=== PATIENT | female | born 1970 | race Caucasian/White ===

== ENCOUNTER → 2016-08-05 | Outpatient (CLI) | payer OTHER ==
[~2016-08-05] MED LIST: ATVUNK PO; ESTR0.3T PO; FLUO20CA35 PO; PRLSR20 PO; blood pressure med PO
== END | disposition home or self-care (01) ==
LOC: C.PAPS 08:20
PROVIDERS: ATTEND Obstetrics & Gynecology
DX: Z12.4 Encounter for screening for malignant neoplasm of cervix (principal)

== ENCOUNTER → 2016-08-05 | Outpatient (CLI) | payer OTHER | END | disposition home or self-care (01) | LOC: C.LAB1850 14:34 | PROVIDERS: ATTEND Obstetrics & Gynecology | DX: Z11.3 Encounter for screening for infections with a predominantly sexual mode of transmission (principal) ==

== ENCOUNTER → 2016-08-05 | Outpatient (CLI) | payer OTHER ==
--- NOTE | 2016-08-05 15:46 | MAMMOGRAPHY REPORT ---
UNILATERAL RIGHT DIGITAL DIAGNOSTIC MAMMOGRAM TOMOSYNTHESIS WITH CAD AND TARGETED RIGHT ULTRASOUND: 08/05/2016 CLINICAL HISTORY: 46-year-old woman presents for follow-up in the right breast. She is status post benign ultrasound-guided core needle biopsy 2. The biopsied masses in the 4:00 and 6:30 breast yie lded benign pathology, but did not definitely correlate with the original mammographic masses seen o n the 11/14/2015 exam. TECHNIQUE: Right breast tomosynthesis in addition to standard 2D mammography was performed. Current study was also evaluated with a Computer Aided Detection (CAD) system. COMPARISON: Comparison is made to exams dated: 11/14/2015 mammogram, 12/11/2015 ultrasound, 3 mammogram - [facility], and 07/17/2008. BREAST COMPOSITION: The tissue of the right breast is heterogeneously dense, which may obscure smal l masses. FINDINGS: There are stable wing-shaped and ribbon-shaped metallic biopsy markers within the lower i nner quadrant of the right breast. On the cc view, tomosynthesis slice 10, there is a 5.7 mm lobula kelly and circumscribed low density mass that is similar to slightly smaller than the mass identified on the 11/14/2015 exam. The slightly medial and anterior second mass smaller than the first is no l onger identified, confirming benignity. This most likely represented a fluctuating cyst. No new martines spicious mass, architectural distortion or cluster of new suspicious microcalcifications is seen. Real-time high-resolution ultrasound was performed in the right breast with attention to the lower i nner quadrant. In the 6:00 axis, a hypoechoic 3 mm cystic appearing mass is again identified, not s ignificantly changed comparing to the 12/11/2015 ultrasound, but this was previously labeled 6:30. A small cyst cluster is seen in the 6:00 right breast, 1 cm from the nipple, measuring 4.5 x 4.0 x 4 .4 mm. Another adjacent small cysts cluster measures 4.5 mm and an ovoid parallel anechoic cyst in the 6:00 axis, 1 cm from the nipple, measures 4.0 mm. No suspicious solid mass is seen. IMPRESSION: ACR-BI-RADS CATEGORY 3: PROBABLY BENIGN, TARGETED ULTRASOUND ACR-BI-RADS CATEGORY 3: OK OBABLY BENIGN There are stable post biopsy changes in the right breast with stable and decreased circumscribed mas ses anterior to the biopsy marker clips which most likely represent fluctuating cysts and/or fibrocy stic changes. However, another short interval follow-up right mammogram including tomosynthesis brandin ges and possible repeat ultrasound is recommended to ensure longer stability. Annual left mammograp hy will also be due at that time. These results and recommendations were discussed with the patient at the time of the exam. Approximately 10% of breast cancers are not detected with mammography. A negative mammographic repor t should not delay biopsy if a clinically suggestive mass is present. Nelly Silva M.D. ay/:08/05/2016 14:35:46 Garment Mender: Mariaelena Chang RT(R)(M), [facility] letter sent: Follow Up Recommended 3 BI-RADS Code: ACR-BI-RADS Category 3: Probably Benign Ultrasound BI-RADS: ACR-BI-RADS Category 3: P robably Benign
== END | disposition home or self-care (01) ==
LOC: C.MAMM 11:10
PROVIDERS: ATTEND Family Medicine
DX: Z09 Encounter for follow-up examination after completed treatment for conditions other than malignant neoplasm (principal); N63 Unspecified lump in breast

== ENCOUNTER → 2016-08-05 | Outpatient (CLI) | payer OTHER | END | disposition home or self-care (01) | LOC: C.LABSPEC 16:47 | PROVIDERS: ATTEND Obstetrics & Gynecology | DX: N76.0 Acute vaginitis (principal) ==

== ENCOUNTER → 2016-09-10 | Outpatient (CLI) | payer OTHER ==
--- NOTE | 2016-09-10 12:41 | DIAGNOSTIC IMAGING REPORT ---
CT OF THE CHEST WITHOUT IV CONTRAST CLINICAL HISTORY: Lung nodule. Tobacco user. Cough. Family history of lung cancer. COMPARISON STUDY: Chest radiograph March 11, 2016. CT DOSE: 371.13 mGycm TECHNIQUE: Axial images of the chest were obtained without IV contrast. Images were reviewed in the axial, sagittal, and coronal planes. IV contrast was not administered for this examination. FINDINGS: No enlarged axillary, mediastinal or hilar lymph nodes are present. The size of the heart is normal. There is no pericardial effusion. Central airways are patent. There is mild emphysema. There are faint centrilobular nodules within the lungs. There are innumerable small calcified granulomas within the lungs. A left lower lobe calcified granuloma accounts for the finding on prior chest radiograph. There are several small noncalcified pulmonary nodules, the largest of which is a 5 mm right middle lobe nodule shown image 194 of 311. There is a 3 mm left upper lobe nodule shown on image 64. There are a few smaller noncalcified pulmonary nodules. There is no evidence solid lesion to suggest pneumonia. There is a 4 mm right lower lobe nodule shown image 201. There is no pneumothorax or pleural effusion. Upper abdomen is unremarkable on this unenhanced exam. IMPRESSION: 1. Multiple small noncalcified pulmonary nodules, measuring up to 5 mm. Although likely benign, these are indeterminate. A follow-up chest CT in 6 months to ensure stability is recommended. 2. Mild emphysema. 3. No thoracic lymphadenopathy. Electronically signed by: Tony Tapia M.D. 09/10/2016 12:39 PM Dictated Date/Time: 09/10/2016 12:31 PM
== END | disposition home or self-care (01) ==
LOC: C.CTS 11:15
PROVIDERS: ATTEND Family Medicine
DX: Z80.1 Family history of malignant neoplasm of trachea, bronchus and lung (principal); J44.9 Chronic obstructive pulmonary disease, unspecified; R05 Cough; R91.8 Other nonspecific abnormal finding of lung field; Z72.0 Tobacco use

== ENCOUNTER → 2017-02-03 | Outpatient (CLI) | payer OTHER ==
--- NOTE | 2017-02-03 15:59 | MAMMOGRAPHY REPORT ---
BILATERAL DIGITAL DIAGNOSTIC MAMMOGRAM TOMOSYNTHESIS WITH CAD AND TARGETED RIGHT ULTRASOUND: 7 CLINICAL HISTORY: 46-year-old woman with a history of benign biopsies in the right breast presents fo r second follow-up to ensure stability as the biopsy marker clips were located posterior to the mammo graphic masses in question. TECHNIQUE: Bilateral breast tomosynthesis in addition to standard 2D mammography was performed. Curre nt study was also evaluated with a Computer Aided Detection (CAD) system. COMPARISON: Comparison is made to exams dated: 08/05/2016 ultrasound, 08/05/2016 mammogram, 11/14/2015 mammogram, 07/01/2013 mammogram - [facility], and 07/17/2008. BREAST COMPOSITION: The tissue of both breasts is heterogeneously dense, which may obscure small mas ses. FINDINGS: The previously observed circumscribed masses in the middle one third of the right breast a long the posterior nipple line and in the medial aspect of the breast are no longer seen, confirming benignity. These most likely represent fluctuating cysts. There are 2 stable metallic biopsy marker s in the right breast. No new suspicious mass, architectural distortion or cluster of microcalcifica tions is seen bilaterally. Targeted ultrasound was performed in the inferior right breast from the 5:00 through 7:00 axes and in the superior right breast from the 11:00 through 1:00 axes. Incidental note is made of a benign sim ple cyst in the 1:00 periareolar right breast, measuring 3 mm. No suspicious solid or cystic mass is identified. IMPRESSION: ACR BI-RADS CATEGORY 2: BENIGN, TARGETED ULTRASOUND ACR BI-RADS CATEGORY 2: BENIGN The circumscribed masses in the right breast along the posterior nipple line and medial aspect of the breast on the CC view are no longer seen, confirming benignity. There is no mammographic evidence o f malignancy bilaterally or targeted sonographic evidence of malignancy in the right breast. A 1 year screening mammogram is recommended. The patient has been verbally notified of the results. Approximately 10% of breast cancers are not detected with mammography. A negative mammographic report should not delay biopsy if a clinically suggestive mass is present. Nelly Silva M.D. ay/:02/03/2017 14:35:09 Message Clerk: Mariaelena ANDERSON(Arvind)(M), [facility] letter sent: Normal 1/2 BI-RADS Code: ACR BI-RADS Category 2: Benign Ultrasound BI-RADS: ACR BI-RADS Category 2: Benign
== END | disposition home or self-care (01) ==
LOC: C.MAMM 13:15
PROVIDERS: ATTEND Physician Assistant
DX: Z09 Encounter for follow-up examination after completed treatment for conditions other than malignant neoplasm (principal); R92.8 Other abnormal and inconclusive findings on diagnostic imaging of breast; N63 Unspecified lump in breast

== ENCOUNTER → 2017-04-28 | Outpatient (CLI) | payer OTHER ==
--- NOTE | 2017-04-28 14:38 | DIAGNOSTIC IMAGING REPORT ---
(CHEST) THORAX WITHOUT CLINICAL HISTORY: 47 years-old Female presenting with LUNG NODULE/TOBACCO USER; COPD. TECHNIQUE: Multidetector CT imaging of the chest was performed without the use of intravenous contrast. IV contrast: None. A dose lowering technique was used consistent with the principles of ALARA (as low as reasonably achievable). COMPARISON: 09/10/2016. CT DOSE (mGy.cm): The estimated cumulative dose is 291.61 mGycm. FINDINGS: Director Distribution topogram: Unremarkable. On soft tissue windows, normal thyroid and thoracic inlet. No axillary, supraclavicular, or mediastinal lymphadenopathy. Evaluation of the jean carlos limited without intravenous contrast. Atherosclerosis of the aorta. Mild coronary artery calcification. Normal heart size. No pericardial or pleural effusion. Upper abdomen normal. On lung windows, multiple calcified granulomas. Trace apical emphysema. Diffuse centrilobular nodular opacities. Few superimposed more solid nodules, the largest on the right measuring 5 mm in the right middle lobe (series 4 image 169), unchanged, and the largest on the left measuring 3 mm (series 4 image 51). Mild bronchial wall thickening. On bone windows, chronic posterior left rib fractures, unchanged. IMPRESSION: 1. Persistent diffuse subtle centrilobular groundglass nodules most consistent with respiratory bronchiolitis/smoking related lung injury. Correlate for clinical symptoms of interstitial lung disease. Few superimposed more prominent nodules may be related to the same process or represent unencapsulated pulmonary lymphoid tissue. These measure up to 5 mm and are stable from prior. Follow-up based on the initial CT date of August 2016 per Demetris Society 2017 recommendations below. 2. Emphysema and wall thickening. Please refer to below summary of Fleischner Society 2017 recommendations for follow-up of incidental CT nodules (H Myra et al. Guidelines for management of incidental pulmonary nodules detected on CT images: From the Fleischner Society 2017. Radiology 2017; 284: 228-243.) SOLID NODULES Single nodule; size < 6 mm * Low risk patients: No routine follow-up * High risk patients: Optional CT at 12 months Single nodule; size 6-8 mm * Low risk patients: CT at 6-12 months, then consider CT at 18-24 months * High risk patients: CT at 6-12 months, then at 18-24 months Single nodule; size > 8 mm * Either low or high risk patients: Considered CT at 3 months, PET/CT, or tissue sampling Multiple nodules; size < 6 mm * Low risk patients: No routine follow up * High risk patients: Optional CT at 12 months Multiple nodules; size 6-8 mm * Low risk patients: CT at 3-6 months, then consider CT at 18-24 months * High risk patients: CT at 3-6 months, then at 18-24 months Multiple nodules; size > 8 mm * Low risk patients: CT at 3-6 months, then consider at 18-24 months * High risk patients: CT at 3-6 months, then at 18-24 months Note: These guidelines apply to incidental nodules. These guidelines do not apply to patients younger than 35 years, immunocompromised patients, or patients with cancer. * Low risk patients: Minimal or absent history of smoking and/or other known risk factors * High risk patients: History of smoking, exposure to other carcinogens, emphysema, fibrosis, upper lobe location, family history of lung cancer, etc. * If a nodule up to 8 mm is partly solid or is ground glass, further follow-up is required after 24 months to exclude possible slow growing adenocarcinoma. SUBSOLID NODULES Single ground-glass nodule * Nodule size < 6 mm: No routine follow-up * Nodule size > or = 6 mm: CT at 6-12 months to confirm persistence, then CT every 2 years until 5 years Single part-solid nodule * Nodule size < 6 mm: No routine follow-up * Nodules size > or = 6 mm: CT at 3-6 months to confirm persistence. If unchanged and solid component remains < 6 mm, annual CT should be performed for 5 years Multiple nodules * Nodule size < 6 mm: CT at 3-6 months. If stable, consider CT at 2 and 4 years. * Nodules size > or = 6 mm: CT at 3-6 months. Subsequent management based on the most suspicious nodule(s) Electronically signed by: Chuck Jung M.D. 04/28/2017 2:37 PM Dictated Date/Time: 04/28/2017 2:30 PM
== END | disposition home or self-care (01) ==
LOC: C.CTS 14:17
PROVIDERS: ATTEND Physician Assistant
DX: R91.8 Other nonspecific abnormal finding of lung field (principal); Z72.0 Tobacco use

== ENCOUNTER → 2017-05-12 | Outpatient (CLI) | payer OTHER ==
[2017-05-12] MEDS: DOBUTamine 500MG / 250ML D5W ONE (12:10)
[2017-05-12] MEDS: METOPROLOL TARTRATE 1 MG/ML VIAL ONE (12:18)
[2017-05-12] MEDS: ATROPINE SULFATE 0.1 MG/ML 5ML SYR ONE (12:18)
--- NOTE | 2017-05-12 14:26 | DOBUTAMINE ECHO ---
*NOTICE TO RECEIVING [employer] This information is strictly Confidential and protected under [place] law. [place] law prohibits you from making any further disclosure of this information unless further disclosure is expressly permitted by the written consent of the person to whom it pertains or is authorized by law. A general authorization for the release of medical or other information is not sufficient for this purpose. Hospital accepts no responsibility if the information is made available to any other person, INCLUDING THE PATIENT. Interpretation Summary * Name: MATTI MALDONADO Study Date: 05/12/2017 11:16 AM BP: 90/60 mmHg * Patient Location: [facility] HR: 63 * : 1970 (M/d/yyyy) Gender: Female Height: 63 in * Age: 47 yrs Ethnicity: CA Weight: 167 lb * Ordering Physician: Radha Loaiza * Referring Physician: Radha Loaiza PA-C * Performed By: Manisha Quiroz RDCS * * Reason For Study: CHEST PAIN, SOB * BSA: 1.8 m2 * -- Conclusions -- * Left ventricular systolic function is normal. * Diagnostic dobutamine echocardiogram without evidence of inducible ischemia Procedure Details * DOBUTAMINE ECHO, CPT#80954 Left Ventricular Findings with Stress * Diagnostic dobutamine echocardiogram without evidence of inducible ischemia Left Ventricle * The left ventricle is normal in size. * There is normal left ventricular wall thickness. * Ejection Fraction = 55-60%. * Left ventricular systolic function is normal. * Normal diastolic function * The left ventricular wall motion is normal at rest. Right Ventricle * The right ventricle is normal in size and function. * The right ventricular systolic function is normal as assessed by tricuspid annular plane systolic excursion (TAPSE) (normal >1.5 cm). Atria * The left atrial size is normal. * Right atrial size is normal. Mitral Valve * The mitral valve anatomy is normal. * Significant mitral regurgitation is absent. Tricuspid Valve * The tricuspid valve is not well visualized, but is grossly normal. * Significant tricuspid regurgitation is absent. Aortic Valve * The aortic valve is normal in structure and function. * The aortic valve is trileaflet. * No hemodynamically significant valvular aortic stenosis. * There is no significant aortic regurgitation. Great Vessels * The aortic root is normal size. Pericardium * There is no pericardial effusion. Stress Parameters * Normal baseline electrocardiogram. * No arrhythmia were noted with stress. * The stress portion of this study was personally supervised by the undersigned interpreting physician. * Rest heart rate was '63' BPM. * Rest blood pressure was '90/60' * Maximum heart rate achieved was 146 bpm. * Maximum heart rate was 83 % of maximum age-predicted heart rate. * Maximum blood pressure was '132/60' * Maximum Dobutamine infusion rate was '50' mcg/kg/min. * A total of .625 mg of intravenous Atropine was used to supplement Dobutamine for heart rate response. * Dobutamine infusion was terminated due to achieving target heart rate * A total of 10 mg of IV Metoprolol was administered to reverse Dobutamine-induced tachycardia. Left Ventricular Findings with Stress * Baseline EKG was normal With dobutamine infusion there was some flattening of the ST segment that was not diagnostic for ischemia Baseline echocardiogram revealed normal wall motion and normal LV function With dobutamine infusion there was normal augmentation of all swan without the development of wall motion abnormalities There was some cavity obliteration which reduces sensitivity There is a normal blood pressure response to dobutamine infusion There were no symptoms reported during the test MMode 2D Measurements and Calculations IVSd 0.83 cm IVSs 1.2 cm LVIDd 4.6 cm LVIDs 3.4 cm LVPWd 0.82 cm LVPWs 1.5 cm IVS/LVPW 1.0 FS 27.0 % EDV(Teich) 97.0 ml ESV(Teich) 45.8 ml EF(Teich) 52.8 % EDV(cubed) 96.9 ml ESV(cubed) 37.6 ml EF(cubed) 61.1 % % IVS thick 43.6 % % LVPW thick 76.4 % LV mass(C)d 123.2 grams LV mass(C)dI 68.8 grams/m\S\2 LV mass(C)s 149.3 grams LV mass(C)sI 83.3 grams/m\S\2 SV(Teich) 51.2 ml SI(Teich) 28.6 ml/m\S\2 SV(cubed) 59.2 ml SI(cubed) 33.1 ml/m\S\2 Ao root diam 2.9 cm Ao root area 6.6 cm\S\2 LA dimension 3.2 cm LA/Ao 1.1 LVAd ap4 27.4 cm\S\2 LVLd ap4 8.3 cm EDV(MOD-sp4) 78.4 ml EDV(sp4-el) 76.6 ml LVAs ap4 15.2 cm\S\2 LVLs ap4 6.5 cm ESV(MOD-sp4) 32.3 ml ESV(sp4-el) 30.3 ml EF(MOD-sp4) 58.8 % EF(sp4-el) 60.5 % LVAd ap2 25.9 cm\S\2 LVLd ap2 7.9 cm EDV(MOD-sp2) 76.2 ml EDV(sp2-el) 72.6 ml LVAs ap2 15.4 cm\S\2 LVLs ap2 6.8 cm ESV(MOD-sp2) 33.3 ml ESV(sp2-el) 29.7 ml EF(MOD-sp2) 56.3 % EF(sp2-el) 59.1 % LVLd %diff -5.67 % EDV(MOD-bp) 78.9 ml LVLs %diff 5.0 % ESV(MOD-bp) 33.4 ml EF(MOD-bp) 57.7 % SV(MOD-sp4) 46.1 ml SI(MOD-sp4) 25.7 ml/m\S\2 SV(MOD-sp2) 42.9 ml SI(MOD-sp2) 23.9 ml/m\S\2 SV(MOD-bp) 45.5 ml SI(MOD-bp) 25.4 ml/m\S\2 SV(sp4-el) 46.3 ml SI(sp4-el) 25.9 ml/m\S\2 SV(sp2-el) 42.9 ml SI(sp2-el) 24.0 ml/m\S\2 Doppler Measurements and Calculations MV E max jeanna 75.7 cm/sec MV A max jeanna 58.7 cm/sec MV E/A 1.3 MV dec time 0.24 sec Ao V2 max 143.6 cm/sec Ao max PG 8.2 mmHg Ao max PG (full) 2.9 mmHg LV V1 max PG 5.4 mmHg LV V1 max 115.9 cm/sec
== END | disposition home or self-care (01) ==
LOC: C.CPL 11:08
PROVIDERS: ATTEND Physician Assistant
DX: I10 Essential (primary) hypertension (principal); R07.9 Chest pain, unspecified; F17.210 Nicotine dependence, cigarettes, uncomplicated

== ENCOUNTER 2017-08-11 23:44 | Emergency (ER) | payer OTHER ==
[~2017-08-11] VITALS: Ht 160 cm; Wt 77.3 kg
[2017-08-11 23:50] VITALS: TEMP 36.3; Ht 160 cm; Wt 77.3 kg
[2017-08-12] MEDS ORDERED: BENZOCAINE 20% (ORAJEL) 11.9 GM TUBE MT STA (00:02)
[2017-08-12] MEDS ORDERED: CLINDAMYCIN 150MG HOME PACK PO ONE ×2 (00:15→01:00)
[2017-08-12] MEDS ORDERED: TRAMADOL HCL 50 MG HOME PACK PO ONE ×2 (00:15→01:00)
[2017-08-12] MEDS ORDERED: LANS15CA27 PO (00:53)
[2017-08-12] MEDS ORDERED: HYDR-3126 PO (00:53)
[2017-08-12] MEDS ORDERED: CZR50 PO (00:53)
[2017-08-12] MEDS ORDERED: PRZ/40 PO (00:53)
[2017-08-12] MEDS ORDERED: ATOR10TA82 PO (00:53)
[2017-08-12] MEDS ORDERED: SPRIN/30 INH (00:53)
[2017-08-12] MEDS ORDERED: VNTHFA/IN PO (00:53)
[2017-08-12] MEDS ORDERED: TPRSR/50 PO (00:53)
[2017-08-12] MEDS ORDERED: HYD50 PO (00:53)
[2017-08-12] MEDS ORDERED: LSN20 PO (00:53)
[2017-08-12] MEDS ORDERED: ASPI1TAB83 PO (00:54)
[2017-08-12] MEDS ORDERED: OMEG10007 PO (00:55)
[2017-08-12] MEDS ORDERED: CHOL1000 PO (00:55)
[2017-08-12] MEDS ORDERED: CLIN300C10 PO (00:57)
[2017-08-12 01:19] VITALS: BP 114/72; PULSE 76; O2SAT 98
--- NOTE | 2017-08-12 01:26 | EMERGENCY ROOM VISIT NOTE ---
History First contact with patient: 23:53 Chief Complaint: DENTAL PAIN Stated Complaint: ABCESS TOOTH,SEVERE PAIN Nursing Triage Summary: see triage note History of Present Illness The patient is a 47 year old female who presents to the Emergency Room with complaints of severe dental pain for the past several days steadily getting worse currently 8 out of 10 to the right upper jaw who has not seen a dentist in quite sometime. Patient is intoxicated and tried to pull the tooth out herself. Her parents drove her to the ER. She continues to smoke. Patient denies chest pain, dyspnea, fever, chills, neck stiffness, sore throat, dysphagia. She is tolerate by mouth fluids and food. Tetanus is current. Review of Systems See HPI for pertinent positives & negatives. A total of 10 systems reviewed and were otherwise negative. Past Medical/Surgical History Medical Problems: (1) No pertinent past medical history Hyperlipidemia, GERD Family History Patient reports no known family medical history. Social History Smoking Status: Current Every Day Smoker Alcohol Use: occasionally Drug Use: none Current/Historical Medications Scheduled Aspirin (Aspirin), 1 TAB PO DAILY Atorvastatin (Lipitor), 10 MG PO HS Cholecalciferol (Vitamin D3), 1 TAB PO DAILY Clindamycin Hcl (Clindamycin Hcl), 1 TAB PO QID Fish Oil ([place]-3), 1 CAP PO DAILY Fluoxetine Hcl (Prozac), 40 MG PO AMHS Hydrochlorothiazide (Hydrochlorothiazide), 50 MG PO DAILY Lansoprazole (Prevacid), 15 MG PO DAILY Lisinopril (Lisinopril), 20 MG PO DAILY Losartan Potassium (Losartan Potassium), 50 MG PO DAILY Metoprolol Succinate (Metoprolol Succinate ER), 50 MG PO DAILY Tiotropium Warren (Spiriva Handihaler), 1 CAP INH DAILY Scheduled PRN Albuterol Hfa (Ventolin Hfa), 2 PUFFS PO Q4 PRN for Shortness of Breath Hydroxyzine Hcl (Atarax), 25-50 MG PO Q6 PRN for Anxiety Physical Exam Vital Signs Date Time Temp Pulse Resp B/P (MAP) Pulse Ox O2 Delivery O2 Flow Rate FiO2 08/11/17 23:50 36.3 79 18 117/81 97 Room Air Physical Exam VITALS: Vitals are noted on the nurse's note and reviewed by myself. Vital signs stable. GENERAL: White female intoxicated, in no acute distress, nondiaphoretic, well- developed well-nourished. SKIN: The skin was without rashes, erythema, edema, or bruising. There is no tenting of the skin. Capillary reflex less than 2 seconds. HEAD: Normocephalic atraumatic. EARS: External auditory canals clear, tympanic membranes pearly rae without erythema or effusion bilaterally. EYES: Pupils equal round and reactive to light and accommodation. Conjunctivae with injection, sclerae without icterus. Extraocular movements intact. NOSE: Patent, turbinates without inflammation or discharge. No sinus tenderness. MOUTH: Mucous membranes moist. Pharynx without erythema or exudate. Uvula midline. Airway patent. Tongue does not deviate. No Dave's angina Dental exam: Right upper molar with extensive dental decay partially pulled out with gum that is erythematous and edematous concerning for infection. Extensive dental decay throughout the mouth. Overall dental hygiene poor. No signs of Dave angina. NECK: Supple without nuchal rigidity. No lymphadenopathy. No thyromegaly. Cervical spine is nontender. No JVD. HEART: Regular rate and rhythm without murmurs gallops or rubs. LUNGS: Clear to auscultation bilaterally without wheezes, rales or rhonchi. No dullness to percussion. No retractions or accessory muscle use. ABDOMEN: Positive bowel sounds x 4. Normal tympanic percussion. Soft, nontender, without masses or organomegaly. Alcazar sign negative. No guarding or rebound tenderness. MUSCULOSKELETAL: No muscle atrophy, erythema, or edema noted. NEURO: Patient was alert and oriented to person place and time. Normal sensation to light and sharp touch. No focal neurological deficits. Medical Decision & Procedures ED Course Prior records reviewed and summarized as above. Triage Nursing notes reviewed. Additional history obtained from family The patient's history was concerning for dental pain Differential diagnosis: Etiologies such as cellulitis, abscess, cavity, Dave angina, gingivitis, as well as others were entertained.. Physical examination: The physical examination was consistent with dental cavity with developing abscess ER treatment provided: Clindamycin, Orajel, Ultram On reassessment the patient felt better. Diagnostics interpreted by me: Deferred This appears to be dental cavity with abscess without signs of facial cellulitis. Patient had no signs of Dave angina. She was informed to call oral surgery this morning at 8 AM for definitive care for her infection. She was started on antibiotics. She was strongly encouraged to quit smoking and drinking alcohol. She is strongly encouraged to see a dentist on a routine basis. Patient was counseled on proper dental hygiene and advised to take medications as directed. Family was present and verbalized understanding of this. She is advised to return to the ER immediately for fevers, severe pain, neck stiffness, worsening signs or symptoms or as needed. She is discharged home in her parents care. By the evaluation outlined above emergent etiologies such as Dave angina as well as others were deemed relatively unlikely. The pt informed about the findings as listed above. All questions were answered and pleased with the treatment. Return instructions were outlined and the patient was discharged in stable condition. Outpatient prescription management: Cleocin Referral: The patient was referred oral surgery for follow-up in 24-48 hrs. for a recheck of the current condition. Medical Decision As above [place] Drug Monitoring Program Search Results: patient reviewed within database, no issues identified Medication Reconcilliation Current Medication List: was personally reviewed by me Blood Pressure Screening Patient's blood pressure: Normal blood pressure Impression Primary Impression: Dental abscess Departure Information Dispostion Home / Self-Care Condition GOOD Prescriptions Clindamycin Hcl (CLINDAMYCIN HCL) 300 Mg Cap 1 TAB PO QID for 10 Days, #40 TABS Prov: Alison Hunter .PARTH 08/12/17 Referrals Josh Smith D.D.S. Forms HOME CARE DOCUMENTATION FORM, IMPORTANT VISIT INFORMATION Patient Instructions Dental Abscess, [facility] Additional Instructions DO NOT drive, drink alcohol, operate machinery, or perform dangerous activities today. You were given medications in the ER that can affect your ability to safely function or operate a vehicle Clindamycin 150mg: Take one pill 4 times daily for 10 days for your infection. Take with food, but avoid dairy. Avoid prolonged sun exposure since this medication makes you temporarily more susceptible to sunburns. All antibiotics can cause diarrhea. If this occurs and you feel worse or it does not resolve in 1-2 days follow up with your doctor or return to the Emergency Department as this could be signs of serious underlying problems. Any medication can cause an allergic reaction, stop the pills immediately and return to the ER for rash, hives, breathing difficulties, or swelling. Ultram 50 mg: Take 1-2 pills every four hours for breakthrough pain. Avoid alcohol, operating machinery or dangerous equipment, working on ladders or roofs , DRIVING, or situations where being under the influence may be dangerous. It is recommended to use an [id number] stool softener such as Colace, 100mg twice daily while taking this medication to avoid constipation. Ibuprofen(Motrin, Advil) may be used for fever or pain. Use 600mg every six hours as needed. Take with food. Avoid using more than 2400mg in a 24 hour period. Do not use 2400mg per day for more than three consecutive days without physician direction. Prolonged inappropriate use can lead to stomach upset or ulcers. This medication can be taken if you need to drive, work, or perform activities which may be dangerous when taking narcotic pain medication. (AND/OR) Acetaminophen(Tylenol) may be used for fever or pain. Use 1000mg every six hours as needed. Avoid using more than 3000mg in a 24 hour period. This medication can be taken if you need to drive, work, or perform activities which may be dangerous when taking narcotic pain medication. Thompson teeth twice a day, floss daily and do warm saltwater gargles 3 times a day. Call oral surgery at 8 AM this morning for definitive care for your dental problem. Return to ER sooner for facial swelling, fever, redness, worsening signs or symptoms or as needed.
== END 2017-08-12 01:20 | disposition home or self-care (01) ==
LOC: C.EDB 23:45 → C.EDA 08-12 01:20
DX: K04.7 Periapical abscess without sinus (principal); F17.200 Nicotine dependence, unspecified, uncomplicated; E78.5 Hyperlipidemia, unspecified; K21.9 Gastro-esophageal reflux disease without esophagitis; Z79.82 Long term (current) use of aspirin

== ENCOUNTER → 2017-10-06 | Outpatient (CLI) | payer OTHER ==
[~2017-10-06] MED LIST changes: +ASPI1TAB83 PO; +ATOR10TA82 PO; -ATVUNK PO; +CHOL1000 PO; +CLIN300C10 PO; +CZR50 PO; -ESTR0.3T PO; -FLUO20CA35 PO; +HYD50 PO; +HYDR-3126 PO; +LANS15CA27 PO; +LSN20 PO; +OMEG10007 PO; -PRLSR20 PO; +PRZ/40 PO; +SPRIN/30 INH; +TPRSR/50 PO; +VNTHFA/IN PO; -blood pressure med PO
--- NOTE | 2017-10-06 14:29 | DIAGNOSTIC IMAGING REPORT ---
(CHEST) THORAX WITHOUT CT DOSE: 376.58 mGy.cm HISTORY: Lung nodule F/U LUNG NODULE,SMOKER TECHNIQUE: Multiaxial CT images of the chest were performed without contrast. A dose lowering technique was utilized adhering to the principles of ALARA. COMPARISON: 04/28/2017 FINDINGS: Multiple small or punctate nodular densities are present throughout both hemithoraces. These are unchanged. There is no evidence for a change in size or configuration of a nodule present. Emphysematous change is stable. There are no focal infiltrative changes. There is no significant hilar or mediastinal adenopathy. There are several anterior right chest healing rib fractures. This is primarily of the right third and fourth ribs. Limited evaluation of the upper abdomen is unremarkable. IMPRESSION: 1. Stable diffuse bilateral pulmonary nodularity. 2. No evidence for new interval or progressive nodule. 3. 3. Stable emphysematous change. 4. 2 anterior healing rib fractures on the right. 5. Follow-up at a 1-2 year time interval is felt to be satisfactory. The above report was generated using voice recognition software. It may contain grammatical, syntax or spelling errors. Electronically signed by: Ciro Guzman M.D. 10/06/2017 2:27 PM Dictated Date/Time: 10/06/2017 2:21 PM
== END | disposition home or self-care (01) ==
LOC: C.CTS 14:13
PROVIDERS: ATTEND Physician Assistant
DX: R91.1 Solitary pulmonary nodule (principal); F17.200 Nicotine dependence, unspecified, uncomplicated

== ENCOUNTER → 2017-11-03 | Outpatient (CLI) | payer OTHER ==
--- NOTE | 2017-11-04 07:51 | MAMMOGRAPHY REPORT ---
UNILATERAL RIGHT DIGITAL DIAGNOSTIC MAMMOGRAM TOMOSYNTHESIS WITH CAD AND TARGETED RIGHT ULTRASOUND: CLINICAL HISTORY: 47-year-old woman presents with intermittent aches and pains in the right breast, f ocally in the 11:00 axis and deep to the nipple. No skin erythema or thickening in the areas of conc mihaela. There are other open sores, possibly sebaceous cysts, in the 9:00 right breast. No nipple disc harge. Patient has a history of prior benign biopsies in the inferior right breast. TECHNIQUE: Right breast tomosynthesis in addition to standard 2D mammography was performed. Current s codi was also evaluated with a Computer Aided Detection (CAD) system. COMPARISON: Comparison is made to exams dated: 02/03/2017 mammogram, 08/05/2016 mammogram, 12/24/2015 ma mmogram, 11/14/2015 mammogram, 07/01/2013 mammogram - [facility], and 07/17/2008. BREAST COMPOSITION: The tissue of the right breast is heterogeneously dense, which may obscure small masses. FINDINGS: A triangular skin marker overlies the 11:00 to 12:00 anterior right breast, denoting the ar ea of concern pointed out by the patient. There are 2 stable metallic biopsy marker clips in the inf erior middle one third of the right breast. The glandular pattern is similar to prior mammograms. N o obvious new masses, asymmetries, areas of distortion or suspicious calcifications are identified. No focal skin thickening appreciated. Targeted ultrasound was performed in the area of pain pointed out by the patient, in the 11:00 axis a pproximately 2 cm from the nipple. Targeted ultrasound performed over the area of concern demonstrat es sonographically normal tissue without a suspicious solid or cystic mass. Additional scanning in t he 12:00 right breast demonstrates normal fibroglandular tissue. IMPRESSION: ACR BI-RADS CATEGORY 2: BENIGN, TARGETED ULTRASOUND ACR BI-RADS CATEGORY 2: BENIGN There is no mammographic or targeted sonographic evidence of malignancy in the right breast. No susp icious abnormality identified to explain the intermittent aches and pains described by the patient. Therefore, continued clinical follow-up is recommended. Also recommend return to annual screening ma mmography schedule, due in January 2018. Approximately 10% of breast cancers are not detected with mammography. A negative mammographic report should not delay biopsy if a clinically suggestive mass is present. Nelly Silva M.D. ay/:11/03/2017 14:44:40 Lead Designer: Thong ANDERSON(Arvind)([place]), [facility] letter sent: Normal 1/2 BI-RADS Code: ACR BI-RADS Category 2: Benign Ultrasound BI-RADS: ACR BI-RADS Category 2: Benign
== END | disposition home or self-care (01) ==
LOC: C.MAMM 14:02
PROVIDERS: ATTEND Physician Assistant
DX: N64.4 Mastodynia (principal)

== ENCOUNTER 2021-09-14 01:17 | Inpatient (IN) ==
[2021-09-14] MEDS ORDERED: SODIUM CHLORIDE 0.9% 1000ML 1,000 ML IV SCH (01:30)
[2021-09-14] MEDS ORDERED: SODIUM CHLORIDE 0.9% 1000ML 1,000 ML IV ONE (01:30)
--- NOTE | 2021-09-14 01:30 | Emergency Department Note ---
History of Present Illness General Chief complaint: Overdose (Intentional) Stated complaint: Overdose Time Seen by Provider: 09/14/21 01:20 History of Present Illness This 51-year-old presents to the ER complaining of intentional overdose on metoprolol who is intoxicated Location: Generalized Quality: Intoxicated Severity: Moderate Duration: Tonight Timing: Tonight Context: Patient intentionally overdosed on metoprolol and came in Modifying factors: better with rest; worse with nothing Patient states she took 50 tablets of 50 mg of metoprolol 3 hours ago. She also drank 1/5 a bottle of vodka which she drinks daily. She states she gets the shakes and not drinking. No history of withdrawal seizures. Patient states she is depressed. She not want to talk about it. Patient denies chest pain, dyspnea, headache, abdominal pain, vomiting, diarrhea, drug use or any other medical complaints. Patient states she is willing to stay on a 201. Home Medications Medication Instructions Recorded Confirmed Type albuterol sulfate 90 mcg/actuation 2 puff INHALATION QID PRN 08/06/21 09/14/21 History aerosol inhaler aspirin 81 mg capsule 81 mg PO QAM 08/06/21 09/14/21 History atorvastatin 80 mg tablet 80 mg PO QAM 08/06/21 09/14/21 History cholecalciferol (vitamin D3) 25 25 mcg PO QAM 08/06/21 09/14/21 History mcg (1,000 unit) tablet (Vitamin D3) cyanocobalamin (vitamin B-12) 1,000 mcg PO QAM 08/06/21 09/14/21 History 1,000 mcg tablet (Vitamin B-12) fluoxetine 40 mg capsule 80 mg PO QAM 08/06/21 09/14/21 History ibuprofen 800 mg tablet 800 mg PO QAM 08/06/21 09/14/21 History losartan 100 mg tablet 100 mg PO QAM 08/06/21 09/14/21 History metoprolol succinate 50 mg 50 mg PO QAM 08/06/21 09/14/21 History tablet,extended release 24 hr pantoprazole 40 mg tablet,delayed 40 mg PO QAM 08/06/21 09/14/21 History release ascorbic acid (vitamin C) 2,000 mg 2,000 mg PO DAILY 09/14/21 09/14/21 History tablet,extended release Allergies Allergy/AdvReac Type Severity Reaction Status Date / Time oxycodone Allergy Intermediate HIVES Verified 09/14/21 02:45 Past Med/Surg History Medical History Anxiety Chronic back pain Chronic obstructive pulmonary disease inhaler prn Depression Hyperlipidemia Hypertension Osteoarthritis Surgical History History of bilateral tubal ligation History of breast biopsy benign History of dilatation and curettage History of endometrial ablation History of gynecologic surgery vulvectomy History of hysterectomy History of tooth extraction History of wisdom tooth extraction Family History Uncle Family history of malignant hyperthermia Social History Smoking Status: Current every day smoker Tobacco Type: Cigarettes Cigarettes Per Day: 10 a day; Second Hand Exposure: No; Hx Alcohol Use: Yes Hx Substance Use: No Preferred Language: Faroese Communication Ability: Effective Assembly Inspector Helper Required: No Beliefs That Will Affect Care: None Current Living Situation: Parent Current Living Situation Comment: Lives with mom Feels Safe at Home: Declines to Answer Assistive Devices: Contacts and Glasses Review of Systems A total of 10 systems reviewed and were otherwise negative Physical Exam Vital Signs Vital Signs - 24 hr 09/14/21 02:08 09/14/21 02:23 09/14/21 03:20 Pulse Rate 82 Pulse Rate [Apical] 86 77 Pulse Rhythm [Apical] Regular Pulse Strength [Apical] Normal Respiratory Rate 22 16 16 Respiratory Effort / Characteristics Non-Labored Respiratory Depth Normal Respiratory Pattern Regular Blood Pressure [Right Arm] 127/96 128/80 Blood Pressure Mean [Right Arm] 106 96 Blood Pressure Position [Right Arm] Lying Lying Pulse Oximetry 96 97 98 Oxygen Delivery Method Room Air Room Air Room Air Sepsis Recent Fever Within 48 Hours No Sepsis New/Unexplained Change in Mental Status No Sepsis Action Taken by Nursing No Action Required VITALS: Vitals are noted on the nurse's note and reviewed by myself. Vital signs stable. GENERAL: Depressed appearing female with EtOH odor, in no acute distress, nondiaphoretic, well-developed well-nourished. SKIN: The skin was without rashes, erythema, edema, or bruising. There is no tenting of the skin. Capillary reflex less than 2 seconds. HEAD: Normocephalic atraumatic. EARS: External auditory canals clear, EYES: Pupils equal round and reactive to light and accommodation. Conjunctivae with mild injection, sclerae without icterus. Extraocular movements intact. NOSE: Patent, turbinates without inflammation or discharge. MOUTH: Mucous membranes moist. Pharynx without erythema or exudate. Uvula midline. Airway patent. Tongue does not deviate. NECK: Supple without nuchal rigidity. No lymphadenopathy. No thyromegaly. Cervical spine is nontender. No JVD. HEART: Regular rate and rhythm LUNGS: Clear to auscultation bilaterally without wheezes, rales or rhonchi. No retractions or accessory muscle use. ABDOMEN: Positive bowel sounds x 4. Normal tympanic percussion. Soft, nontende r, without masses or organomegaly. Alcazar sign negative. No guarding or rebound tenderness. No CVA tenderness MUSCULOSKELETAL: No muscle atrophy, erythema, or edema noted. NEURO: Patient was alert and oriented to person place and time. Normal sensation to light and sharp touch. No focal neurological deficits. Course Administered Medications Magnesium Sulfate/Dextrose (Magnesium Sulfate / D5w) 1 gm in 100 mls @ 50 mls/hr IV Q2H EMIL Stop: 09/14/21 06:31 Last Admin: 09/14/21 03:14 Dose: 50 mls/hr Documented by: [id number] Lactated Ringer's (Lr) 1,000 mls @ 80 mls/hr IV .[id number] ONE Stop: 09/14/21 15:36 Last Admin: 09/14/21 03:19 Dose: 80 mls/hr Documented by: [id number] Discontinued Medications Gabapentin (Gabapentin 600 Mg Tab) 1,200 mg PO NOW STA Stop: 09/14/21 03:00 Last Admin: 09/14/21 03:18 Dose: 1,200 mg Documented by: [id number] Gabapentin (Gabapentin 1200mg Alcohol Withdrawal Load) 1 ea PO NOW STA; Protocol Stop: 09/14/21 03:06 Last Admin: 09/14/21 03:18 Dose: 1 ea Documented by: [id number] Sodium Chloride (Nss 1000ml) 1,000 mls @ 999 mls/hr IV .Q1H1M EMIL Stop: 09/14/21 02:30 Last Admin: 09/14/21 02:48 Dose: 999 mls/hr Documented by: [id number] Sodium Chloride (Nss 1000ml) 1,000 mls @ 999 mls/hr IV .Q1H1M ONE Stop: 09/14/21 02:30 Last Infusion: 09/14/21 02:59 Dose: 0 mls/hr Documented by: [id number] Admin: 09/14/21 02:48 Dose: 999 mls/hr Documented by: [id number] Thiamine HCl 100 mg/ Syringe 10 mls @ 2 mls/min IV NOW STA Stop: 09/14/21 02:45 Last Admin: 09/14/21 03:14 Dose: 2 mls/min Documented by: [id number] Nicotine (Nicotine 21 Mg/24 Hr Tdsy) 21 mg TD NOW STA Stop: 09/14/21 02:09 Last Admin: 09/14/21 02:49 Dose: 21 mg Documented by: [id number] Medical Decision Making Medical Records Attestation: I reviewed the patient's medical records. Home Medications Current Medication List: was personally reviewed by me Laboratory Data Attestation: I reviewed the patient's lab results. Result diagrams: 09/14/21 01:39 09/14/21 01:39 Lab Results 09/14/21 09/14/21 09/14/21 Range/Units 01:39 01:39 01:39 WBC (4.8-10.8) K/uL RBC (4.2-5.4) M/uL Hgb (12.0-16.0) g/dL Hct (37-47) % MCV (80-100) fL MCH (25-34) pg MCHC (32-36) g/dL RDW Std Deviation (36.4-46.3) fL RDW Coeff of Gwyn (11.5-14.5) % Plt Count (130-400) K/uL MPV (7.4-10.4) fL Immature Gran % (Auto) % Neut % (Auto) % Lymph % (Auto) % [place] % (Auto) % Eos % (Auto) % Baso % (Auto) % Neut # (Auto) (1.4-6.5) K/uL Lymph # (Auto) (1.2-3.4) K/uL [place] # (Auto) (0.11-0.59) K/uL Eos # (Auto) (0-0.5) K/uL Baso # (Auto) (0-0.2) K/uL Immature Gran # (Auto) (0.00-0.02) K/uL Sodium 138 (136-145) mmol/L Potassium 4.0 (3.5-5.1) mmol/L Chloride 106 (98-107) mmol/L Carbon Dioxide 20 L (21-32) mmol/L Anion Gap 12 H (3-11) BUN 16 (6-23) mg/dl Creatinine 0.67 (0.6-1.2) mg/dl Est Cr Clr Drug Dosing Not Reportable Est GFR ( Amer) 118.8 ml/min Est GFR (Non-Af Amer) 102.5 ml/min BUN/Creatinine Ratio 23.9 H (10-20) Glucose 100 H (70-99(Fasting)) mg/dl Calcium 9.2 (8.5-10.1) mg/dl Magnesium 1.4 L (1.7-2.4) mg/dl Total Bilirubin 0.2 (0.2-1.0) mg/dl AST 19 (13-39) U/L ALT 17 (7-52) U/L Alkaline Phosphatase 90 (34-104) U/L Total Creatine Kinase 128 (26-192) U/L Total Protein 6.9 (6.0-8.3) gm/dl Albumin 4.3 (3.4-5.0) gm/dl Globulin 2.6 (2.5-4.0) gm/dl Albumin/Globulin Ratio 1.7 (0.9-2) Urine Color Urine Appearance (Clear) Urine pH (4.5-7.5) Ur Specific [place] (1.000-1.030) Urine Protein (Negative) Urine Glucose (UA) (Negative) Urine Ketones (Negative) Urine Blood (Negative) Urine Nitrite (Negative) Urine Bilirubin (Negative) Urine Urobilinogen (Negative) Ur Leukocyte Esterase (Negative) Salicylates < 3.0 L (3.0-30) mg/dl Urine Opiates Screen (Neg) Ur Methadone, Qual (Neg) Acetaminophen < 3 L (10-30) ug/ml Urine Barbiturates (Neg) Ur Phencyclidine (PCP) (Neg) U Amphetamin/Meth Scrn (Neg) MDMA (Ecstasy) Screen (Neg) U Benzodiazepines Scrn (Neg) Ur Cocaine Metabolite (Neg) U Marijuana (THC) Screen (Neg) Ethyl Alcohol mg/dL 134.1 H (<10.0) mg/dl SARS-CoV-2, RNA, NAAT (NEGATIVE) 09/14/21 09/14/21 09/14/21 Range/Units 01:39 02:15 02:15 WBC 11.39 H (4.8-10.8) K/uL RBC 3.64 L (4.2-5.4) M/uL Hgb 12.4 (12.0-16.0) g/dL Hct 37.2 (37-47) % MCV 102.2 H (80-100) fL MCH 34.1 H (25-34) pg MCHC 33.3 (32-36) g/dL RDW Std Deviation 54.0 H (36.4-46.3) fL RDW Coeff of Gwyn 14.5 (11.5-14.5) % Plt Count 342 (130-400) K/uL MPV 10.3 (7.4-10.4) fL Immature Gran % (Auto) 1.2 % Neut % (Auto) 63.5 % Lymph % (Auto) 26.6 % [place] % (Auto) 6.4 % Eos % (Auto) 1.8 % Baso % (Auto) 0.5 % Neut # (Auto) 7.22 H (1.4-6.5) K/uL Lymph # (Auto) 3.03 (1.2-3.4) K/uL [place] # (Auto) 0.73 H (0.11-0.59) K/uL Eos # (Auto) 0.21 (0-0.5) K/uL Baso # (Auto) 0.06 (0-0.2) K/uL Immature Gran # (Auto) 0.14 H (0.00-0.02) K/uL Sodium (136-145) mmol/L Potassium (3.5-5.1) mmol/L Chloride (98-107) mmol/L Carbon Dioxide (21-32) mmol/L Anion Gap (3-11) BUN (6-23) mg/dl Creatinine (0.6-1.2) mg/dl Est Cr Clr Drug Dosing Est GFR ( Amer) ml/min Est GFR (Non-Af Amer) ml/min BUN/Creatinine Ratio (10-20) Glucose (70-99(Fasting)) mg/dl Calcium (8.5-10.1) mg/dl Magnesium (1.7-2.4) mg/dl Total Bilirubin (0.2-1.0) mg/dl AST (13-39) U/L ALT (7-52) U/L Alkaline Phosphatase (34-104) U/L Total Creatine Kinase (26-192) U/L Total Protein (6.0-8.3) gm/dl Albumin (3.4-5.0) gm/dl Globulin (2.5-4.0) gm/dl Albumin/Globulin Ratio (0.9-2) Urine Color Yellow Urine Appearance Clear (Clear) Urine pH 6.0 (4.5-7.5) Ur Specific [place] 1.005 (1.000-1.030) Urine Protein Negative (Negative) Urine Glucose (UA) Negative (Negative) Urine Ketones Negative (Negative) Urine Blood Negative (Negative) Urine Nitrite Negative (Negative) Urine Bilirubin Negative (Negative) Urine Urobilinogen Negative (Negative) Ur Leukocyte Esterase Negative (Negative) Salicylates (3.0-30) mg/dl Urine Opiates Screen Neg (Neg) Ur Methadone, Qual Neg (Neg) Acetaminophen (10-30) ug/ml Urine Barbiturates Neg (Neg) Ur Phencyclidine (PCP) Neg (Neg) U Amphetamin/Meth Scrn Neg (Neg) MDMA (Ecstasy) Screen Neg (Neg) U Benzodiazepines Scrn Neg (Neg) Ur Cocaine Metabolite Neg (Neg) U Marijuana (THC) Screen Neg (Neg) Ethyl Alcohol mg/dL (<10.0) mg/dl SARS-CoV-2, RNA, NAAT (NEGATIVE) 09/14/21 Range/Units 02:35 WBC (4.8-10.8) K/uL RBC (4.2-5.4) M/uL Hgb (12.0-16.0) g/dL Hct (37-47) % MCV (80-100) fL MCH (25-34) pg MCHC (32-36) g/dL RDW Std Deviation (36.4-46.3) fL RDW Coeff of Gwyn (11.5-14.5) % Plt Count (130-400) K/uL MPV (7.4-10.4) fL Immature Gran % (Auto) % Neut % (Auto) % Lymph % (Auto) % [place] % (Auto) % Eos % (Auto) % Baso % (Auto) % Neut # (Auto) (1.4-6.5) K/uL Lymph # (Auto) (1.2-3.4) K/uL [place] # (Auto) (0.11-0.59) K/uL Eos # (Auto) (0-0.5) K/uL Baso # (Auto) (0-0.2) K/uL Immature Gran # (Auto) (0.00-0.02) K/uL Sodium (136-145) mmol/L Potassium (3.5-5.1) mmol/L Chloride (98-107) mmol/L Carbon Dioxide (21-32) mmol/L Anion Gap (3-11) BUN (6-23) mg/dl Creatinine (0.6-1.2) mg/dl Est Cr Clr Drug Dosing Est GFR ( Amer) ml/min Est GFR (Non-Af Amer) ml/min BUN/Creatinine Ratio (10-20) Glucose (70-99(Fasting)) mg/dl Calcium (8.5-10.1) mg/dl Magnesium (1.7-2.4) mg/dl Total Bilirubin (0.2-1.0) mg/dl AST (13-39) U/L ALT (7-52) U/L Alkaline Phosphatase (34-104) U/L Total Creatine Kinase (26-192) U/L Total Protein (6.0-8.3) gm/dl Albumin (3.4-5.0) gm/dl Globulin (2.5-4.0) gm/dl Albumin/Globulin Ratio (0.9-2) Urine Color Urine Appearance (Clear) Urine pH (4.5-7.5) Ur Specific [place] (1.000-1.030) Urine Protein (Negative) Urine Glucose (UA) (Negative) Urine Ketones (Negative) Urine Blood (Negative) Urine Nitrite (Negative) Urine Bilirubin (Negative) Urine Urobilinogen (Negative) Ur Leukocyte Esterase (Negative) Salicylates (3.0-30) mg/dl Urine Opiates Screen (Neg) Ur Methadone, Qual (Neg) Acetaminophen (10-30) ug/ml Urine Barbiturates (Neg) Ur Phencyclidine (PCP) (Neg) U Amphetamin/Meth Scrn (Neg) MDMA (Ecstasy) Screen (Neg) U Benzodiazepines Scrn (Neg) Ur Cocaine Metabolite (Neg) U Marijuana (THC) Screen (Neg) Ethyl Alcohol mg/dL (<10.0) mg/dl SARS-CoV-2, RNA, NAAT NEGATIVE (NEGATIVE) Imaging Data Attestation: I personally reviewed and interpreted this imaging study as f vanessa: [facility] Narrative Prior records/ancillary studies reviewed. Triage Nursing notes reviewed. Additional history obtained from EMS. The patient's history was concerning for altered mental status and probable overdose. Differential diagnosis: Etiologies such as toxicologic, infection, hypoglycemia, electrolyte abnormalities, cardiac sources, intracerebral event, neurologic, as well as others were entertained. Physical examination: The patient had normal sensorium. No trauma noted. ER treatment provided: IV NSS 1 L bolus Magnesium An order was placed for continuous cardiac monitoring. The monitor shows a rate of 60-1 50 with a sinus rhythm. Poison control was immediately consulted On reassessment the patient was stable and improving. Diagnostic interpretation by me: The electrocardiogram was negative for pathologic change. There was no QRS widening or interval prolongation. EKG ordered for overdose EKG: Normal sinus, poor baseline, no acute ST-T wave changes. Impression normal sinus rhythm interpreted by myself I think arrhythmia is unlikely. EKG shows normal sinus rhythm with no interval abnormalities such as QT prolongation or WPW. There are no findings to suggest Brugada syndrome. Cardiac monitoring in the emergency department reveals no tachycardic or bradycardic dysrhythmia. Hypertrophic cardiomyopathy was considered but there are no clear historical elements pointing toward this. EKG is not suggestive. The QRS voltage is not extremely large and there are no suggestive Q waves. The labs revealed alcohol 134, low magnesium Negative Tylenol and aspirin levels. Mild leukocytosis Imaging studies: Chest x-ray with no acute consolidation, pneumothorax or free air per my interpretation Consultation: A consultation was placed with Poison Control. The recommendations were for observation and if patient becomes symptomatic to give glucagon pressors and fluids.. A consultation was placed with the hospitalist. The case was discussed and diagnostics were reviewed. The patient was evaluated in the ER for further treatment. This appears to be consistent with an intentional overdose for suicide attempt who is an alcoholic. Medicine was consulted. She will be evaluated for admission. Patient's blood pressure and heart rate remained stable. By the evaluation outlined above emergent etiologies such as infection, hypoglycemia, electrolyte abnormalities, cardiac sources, intracerebral event, neurologic,as well as others were deemed relatively unlikely. The pt informed about the findings as listed above. All questions were answered and pleased with the treatment. The chart was completed utilizing [employer] voice recognition software. Grammatical errors, random word insertions, pronoun errors, and incomplete sentences are an occassional consequence of this system due to software limitations, ambient noise, and hardware issues. Any formal questions or concerns about the content, text, or information contained within the body of this dictation should be directly addressed to the physician press assistant for clarification. Impression & Plan Drug overdose, Suicide attempt by beta jil overdose, Alcoholism, Hypomagnesemia Discharge Plan Visit Data Chief Complaint: Overdose (Intentional) Stated Complaint: Overdose ED Provider: Alma Perez ED Midlevel Provider: Alison Hunter Discharge Problem: Drug overdose, Suicide attempt by beta jil overdose, Alcoholism, Hypomagnesemia Patient Disposition: Admitted As Inpatient Condition: Good Forms Stand Alone Forms: [facility], Suicide Prevention Resources Prescriptions Prescriptions: No Action fluoxetine 40 mg Capsule 80 mg PO QAM RF: 0 atorvastatin 80 mg Tablet 80 mg PO QAM RF: 0 ibuprofen 800 mg Tablet 800 mg PO QAM RF: 0 metoprolol succinate 50 mg Tablet Extended Release 24 Hr 50 mg PO QAM RF: 0 cyanocobalamin (vitamin B-12) [Vitamin B-12] 1,000 mcg Tablet 1,000 mcg PO QAM RF: 0 pantoprazole 40 mg Tablet,Delayed Release (Dr/Ec) 40 mg PO QAM RF: 0 albuterol sulfate 90 mcg/actuation Hfa Aerosol Inhaler 2 puff INHALATION QID PRN (Reason: Shortness Of Breath) RF: 0 losartan 100 mg Tablet 100 mg PO QAM RF: 0 cholecalciferol (vitamin D3) [Vitamin D3] 25 mcg (1,000 unit) Tablet 25 mcg PO QAM RF: 0 aspirin 81 mg Capsule 81 mg PO QAM RF: 0 Vitamin C 2,000 mg Tablet Extended Release 2,000 mg PO DAILY RF: 0 Referrals Referrals: Orlando Bush MD [Primary Care Provider] - Discharge Problem: Drug overdose Qualifiers: Encounter type: initial encounter Injury intent: intentional self-harm Qualified Code(s): T50.902A - Poisoning by unspecified drugs, medicaments and biological substances, intentional self-harm, initial encounter
[2021-09-14 02:04] LABS: Basophils # (auto) 0.06 K/uL (0-0.2); Basophils % (auto) 0.5 %; Eosinophils # (auto) 0.21 K/uL (0-0.5); Eosinophils % (auto) 1.8 %; Hematocrit (blood only) 37.2 % (37-47); Hemoglobin 12.4 g/dL (12.0-16.0); Immature Granulocytes # (auto) 0.14 K/uL (0.00-0.02); Immature Granulocytes % (auto) 1.2 %; Lymphocytes # (auto) 3.03 K/uL (1.2-3.4); Lymphocytes % (auto) 26.6 %; Mean Corpuscular Hemoglobin 34.1 pg (25-34); Mean Corpuscular Hgb Conc 33.3 g/dL (32-36); Mean Corpuscular Volume 102.2 fL (80-100); Mean Platelet Volume 10.3 fL (7.4-10.4); Monocytes # (auto) 0.73 K/uL (0.11-0.59); Monocytes % (auto) 6.4 %; Neutrophils # (auto) 7.22 K/uL (1.4-6.5); Neutrophils % (auto) 63.5 %; Platelet Count 342 K/uL (130-400); RDW Coefficient of Variation 14.5 % (11.5-14.5); Red Blood Count 3.64 M/uL (4.2-5.4); White Blood Count 11.39 K/uL (4.8-10.8)
[2021-09-14] MEDS ORDERED: NICOTINE 21 MG/24 HR TDSY TD STA (02:08)
[2021-09-14 02:28] LABS: Acetaminophen < 3 ug/ml (10-30); Salicylate < 3.0 mg/dl (3.0-30)
[2021-09-14 02:29] LABS: Alanine Aminotransferase 17 U/L (7-52); Albumin Globulin Ratio 1.7 (0.9-2); Albumin Level 4.3 gm/dl (3.4-5.0); Alkaline Phosphatase 90 U/L (34-104); Anion Gap 12 (3-11); Aspartate Aminotransferase 19 U/L (13-39); BUN Creatinine Ratio 23.9 (10-20); Bilirubin,Total 0.2 mg/dl (0.2-1.0); Blood Urea Nitrogen 16 mg/dl (6-23); Calcium 9.2 mg/dl (8.5-10.1); Carbon Dioxide 20 mmol/L (21-32); Chloride 106 mmol/L (98-107); Creatine Kinase 128 U/L (26-192); Est GFR (African American) 118.8 ml/min; Est GFR (Non-African American) 102.5 ml/min; Globulin 2.6 gm/dl (2.5-4.0); Glucose 100 mg/dl (70-99(Fasting)); Magnesium 1.4 mg/dl (1.7-2.4); Sodium 138 mmol/L (136-145); Total Protein 6.9 gm/dl (6.0-8.3)
[2021-09-14] MEDS ORDERED: MAGNESIUM SULFATE / D5W 1 GM/100 ML BAG IV SCH (02:34)
[2021-09-14 02:41] LABS: Appearance Urine Clear (Clear); Bilirubin Urine Negative (Negative); Blood Urine Negative (Negative); Color Urine Yellow; Glucose Urine UA Negative (Negative); Ketones Urine Negative (Negative); Leukocyte Esterase Urine Negative (Negative); Nitrite Urine Negative (Negative); Protein Urine Negative (Negative); Specific Gravity Urine 1.005 (1.000-1.030); Urobilinogen Urine Negative (Negative)
[2021-09-14] MEDS ORDERED: THIAMINE HCL 100 MG in SYRINGE 9 ML IV STA (02:41)
[2021-09-14] MEDS ORDERED: GABAPENTIN 600 MG TAB PO STA (02:59)
--- NOTE | 2021-09-14 02:59 | History & Physical Report ---
Date of Service September 14, 2021 Assessment & Plan (1) Drug overdose: Plan: Intentional beta-jil overdose (alleged) Likely suicidal intent mood disorder, suboptimal ongoing tobacco/alcohol abuse PCU Follow toxicology recommendations Hold antihypertensives for now. Atropine as needed symptomatic bradycardia. Suicide precautions Psych consult Re: Possible suicidality JULIANNA S, DT precautions Nicotine patch DVT prophylaxis. Lovenox subcu Full code Text document was generated using [employer] voice recognition software. It may contain grammatical or spelling errors. Kindly contact undersigned for clarification of any documentation item in questi on. History of Present Illness Chief Complaint: Beta jil overdose Primary Care Provider: Orlando Bush MD History obtained from patient and records. Medical history significant for mood disorder, GERD, ongoing tobacco/alcohol abuse. Last night, patient allegedly took 50 tablets of metoprolol 50 mg home Rx along with alcohol. Patient admits to personal stressors. Does not want to confirm or deny suicidal intent for now. Patient denies chest pain, S OB, headache, dizziness symptoms. Patient cites history of alcohol withdrawal/seizures. Patient brought to the ER for evaluation. 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 Allergies Allergy/AdvReac Type Severity Reaction Status Date / Time oxycodone Allergy Intermediate HIVES Verified 09/14/21 02:45 Home Medications Medication Instructions Recorded Confirmed Type albuterol sulfate 90 mcg/actuation 2 puff INHALATION QID PRN 08/06/21 09/14/21 History aerosol inhaler aspirin 81 mg capsule 81 mg PO QAM 08/06/21 09/14/21 History atorvastatin 80 mg tablet 80 mg PO QAM 08/06/21 09/14/21 History cholecalciferol (vitamin D3) 25 25 mcg PO QAM 08/06/21 09/14/21 History mcg (1,000 unit) tablet (Vitamin D3) cyanocobalamin (vitamin B-12) 1,000 mcg PO QAM 08/06/21 09/14/21 History 1,000 mcg tablet (Vitamin B-12) fluoxetine 40 mg capsule 80 mg PO QAM 08/06/21 09/14/21 History ibuprofen 800 mg tablet 800 mg PO QAM 08/06/21 09/14/21 History losartan 100 mg tablet 100 mg PO QAM 08/06/21 09/14/21 History metoprolol succinate 50 mg 50 mg PO QAM 08/06/21 09/14/21 History tablet,extended release 24 hr pantoprazole 40 mg tablet,delayed 40 mg PO QAM 08/06/21 09/14/21 History release ascorbic acid (vitamin C) 2,000 mg 2,000 mg PO DAILY 09/14/21 09/14/21 History tablet,extended release Past Med/Surg History Medical History Anxiety Chronic back pain Chronic obstructive pulmonary disease inhaler prn Depression Hyperlipidemia Hypertension Osteoarthritis Surgical History History of bilateral tubal ligation History of breast biopsy benign History of dilatation and curettage History of endometrial ablation History of gynecologic surgery vulvectomy History of hysterectomy History of tooth extraction History of wisdom tooth extraction Family History Uncle Family history of malignant hyperthermia Social History Smoking Status: Current every day smoker Tobacco Type: Cigarettes Cigarettes Per Day: Pack; Second Hand Exposure: No; Do You Dip or Chew Tobacco: No; Tobacco Cessation Education Requested by Patient: No Hx Alcohol Use: Yes Alcohol type: hard liquor Hx Substance Use: Yes Last Used Substance: Unknown Last Used Substance Other:: Has not used in years per pt. Preferred Language: Latvian Communication Ability: Effective Vocational Rehabilitation Technician Required: No Beliefs That Will Affect Care: None Current Living Situation: Family Current Living Situation Comment: Lives with mother Other Information That Helps Us Care for You: No Feels Safe at Home: Yes Safety Concerns: Feels Safe At This Time Assistive Devices: Glasses Review of Systems Review of Systems: As per HPI, all 10 systems reviewed, all other ROS negative Physical Exam Physical Exam: GENERAL: Paranoid, obese, no respiratory distress SKIN: Normal color, warm HEENT: [place] palpebral conjunctivae, no ptosis, dry buccal mucosa NECK : Supple, short neck, no tenderness CHEST : Decreased breath sounds, no tenderness HEART : RRR, no obvious murmurs ABDOMEN: Some distention, nontender EXTREMITIES : Minimal LE swelling/tenderness, no other conspicuous deformities noted NEUROLOGIC : Coherent, no facial asymmetry, no other gross focality Results & Data Results & Data ([facility]) Vital Signs (Past 12 Hours) Vital Signs Pulse Pulse Resp BP Pulse Ox 09/14/21 02:23 82 16 97 09/14/21 02:08 86 22 127/96 96 Laboratory Results Laboratory Results WBC 11.39 K/uL (4.8-10.8) H 09/14/21 01:39 RBC 3.64 M/uL (4.2-5.4) L 09/14/21 01:39 Hgb 12.4 g/dL (12.0-16.0) 09/14/21 01:39 Hct 37.2 % (37-47) 09/14/21 01:39 MCV 102.2 fL (80-100) H 09/14/21 01:39 MCH 34.1 pg (25-34) H 09/14/21 01:39 MCHC 33.3 g/dL (32-36) 09/14/21 01:39 RDW Std Deviation 54.0 fL (36.4-46.3) H 09/14/21 01:39 RDW Coeff of Gwyn 14.5 % (11.5-14.5) 09/14/21 01:39 Plt Count 342 K/uL (130-400) 09/14/21 01:39 MPV 10.3 fL (7.4-10.4) 09/14/21 01:39 Immature Gran % (Auto) 1.2 % 09/14/21 01:39 Neut % (Auto) 63.5 % 09/14/21 01:39 Lymph % (Auto) 26.6 % 09/14/21 01:39 [place] % (Auto) 6.4 % 09/14/21 01:39 Eos % (Auto) 1.8 % 09/14/21 01:39 Baso % (Auto) 0.5 % 09/14/21 01:39 Neut # (Auto) 7.22 K/uL (1.4-6.5) H 09/14/21 01:39 Lymph # (Auto) 3.03 K/uL (1.2-3.4) 09/14/21 01:39 [place] # (Auto) 0.73 K/uL (0.11-0.59) H 09/14/21 01:39 Eos # (Auto) 0.21 K/uL (0-0.5) 09/14/21 01:39 Baso # (Auto) 0.06 K/uL (0-0.2) 09/14/21 01:39 Immature Gran # (Auto) 0.14 K/uL (0.00-0.02) H 09/14/21 01:39 Sodium 138 mmol/L (136-145) 09/14/21 01:39 Potassium 4.0 mmol/L (3.5-5.1) 09/14/21 01:39 Chloride 106 mmol/L (98-107) 09/14/21 01:39 Carbon Dioxide 20 mmol/L (21-32) L 09/14/21 01:39 Anion Gap 12 (3-11) H 09/14/21 01:39 BUN 16 mg/dl (6-23) 09/14/21 01:39 Creatinine 0.67 mg/dl (0.6-1.2) 09/14/21 01:39 Est Cr Clr Drug Dosing Not Reportable 09/14/21 01:39 Est GFR ( Amer) 118.8 ml/min 09/14/21 01:39 Est GFR (Non-Af Amer) 102.5 ml/min 09/14/21 01:39 BUN/Creatinine Ratio 23.9 (10-20) H 09/14/21 01:39 Glucose 100 mg/dl (70-99(Fasting)) H 09/14/21 01:39 Calcium 9.2 mg/dl (8.5-10.1) 09/14/21 01:39 Magnesium 1.4 mg/dl (1.7-2.4) L 09/14/21 01:39 Total Bilirubin 0.2 mg/dl (0.2-1.0) 09/14/21 01:39 AST 19 U/L (13-39) 09/14/21 01:39 ALT 17 U/L (7-52) 09/14/21 01:39 Alkaline Phosphatase 90 U/L (34-104) 09/14/21 01:39 Total Creatine Kinase 128 U/L (26-192) 09/14/21 01:39 Total Protein 6.9 gm/dl (6.0-8.3) 09/14/21 01:39 Albumin 4.3 gm/dl (3.4-5.0) 09/14/21 01:39 Globulin 2.6 gm/dl (2.5-4.0) 09/14/21 01:39 Albumin/Globulin Ratio 1.7 (0.9-2) 09/14/21 01:39 Urine Color Yellow 09/14/21 02:15 Urine Appearance Clear (Clear) 09/14/21 02:15 Urine pH 6.0 (4.5-7.5) 09/14/21 02:15 Ur Specific [place] 1.005 (1.000-1.030) 09/14/21 02:15 Urine Protein Negative (Negative) 09/14/21 02:15 Urine Glucose (UA) Negative (Negative) 09/14/21 02:15 Urine Ketones Negative (Negative) 09/14/21 02:15 Urine Blood Negative (Negative) 09/14/21 02:15 Urine Nitrite Negative (Negative) 09/14/21 02:15 Urine Bilirubin Negative (Negative) 09/14/21 02:15 Urine Urobilinogen Negative (Negative) 09/14/21 02:15 Ur Leukocyte Esterase Negative (Negative) 09/14/21 02:15 Salicylates < 3.0 mg/dl (3.0-30) L 09/14/21 01:39 Acetaminophen < 3 ug/ml (10-30) L 09/14/21 01:39 Ethyl Alcohol mg/dL 134.1 mg/dl (<10.0) H 09/14/21 01:39 SARS-CoV-2, RNA, NAAT NEGATIVE (NEGATIVE) 09/14/21 02:35 Diagnostic Findings Chest x-ray as per my interpretation atelectasis EKG as per my interpretation : Rate 85, NSR, normal axis, no ischemia (1) Drug overdose Encounter type: initial encounter Injury intent: intentional self-harm Qualified Code(s): T50.902A - Poisoning by unspecified drugs, medicaments and biological substances, intentional self-harm, initial encounter
[2021-09-14] MEDS ORDERED: GABAPENTIN 1200MG ALCOHOL WITHDRAWAL LOAD PO STA (03:05)
[2021-09-14 03:07] LABS: Amphetamines+Metham, Urine Neg (Neg); Barbiturates, Urine Neg (Neg); Benzodiazepine, Urine Neg (Neg); Cocaine, Urine Neg (Neg); MDMA (Ecstacy), Urine Neg (Neg); Methadone, Urine Neg (Neg); Opiate, Urine Neg (Neg); Phencyclidine, Urine Neg (Neg)
[2021-09-14] MEDS ORDERED: LACTATED RINGER'S 1,000 ML IV ONE (03:07)
[2021-09-14] MEDS: MAGNESIUM SULFATE / D5W 1 GM/100 ML BAG IV SCH ×2 (03:14→05:41)
[2021-09-14] MEDS ORDERED: IBUPROFEN 200 MG TAB PO PRN (04:10)
[2021-09-14] MEDS ORDERED: ATIVAN IV ALCOHOL WITHDRAWL IV PRN (04:10)
[2021-09-14] MEDS ORDERED: LORazepam 2 MG/1 ML VIAL IV PRN ×3 (04:10)
[2021-09-14] MEDS ORDERED: ACETAMINOPHEN 325 MG TAB PO PRN (04:10)
[2021-09-14] MEDS ORDERED: PROMETHAZINE HCL 12.5 MG in SODIUM CHLORIDE 0.9% 50 ML IV PRN (04:10)
[2021-09-14] MEDS ORDERED: ATROPINE SULFATE 0.1 MG/ML 10ML SYR IV PRN (04:10)
[2021-09-14 04:16] LABS: Troponin I < 0.03 ng/ml (0-0.04)
[2021-09-14] MEDS: ASPIRIN 81 MG ECTAB PO SCH (08:39)
[2021-09-14] MEDS: PANTOprazole 40 MG TAB PO SCH (08:40)
[2021-09-14] MEDS: FLUoxetine HCL 20 MG CAP PO SCH (08:40)
[2021-09-14] MEDS: ATORVASTATIN 40 MG TAB PO SCH (08:40)
[2021-09-14] MEDS: FOLIC ACID 1 MG TAB PO SCH (08:40)
[2021-09-14] MEDS: MULTIVITAMIN TAB PO SCH (08:40)
[2021-09-14] MEDS: ENOXAPARIN INJ 40 MG/0.4 ML SYR SQ SCH (08:40)
[2021-09-14] MEDS: GABAPENTIN 600MG Q6H DOSE PO SCH ×2 (08:43→15:44)
--- NOTE | 2021-09-14 08:47 | XRay Report ---
XR chest 1V portable CLINICAL HISTORY: Overdose. COMPARISON STUDY: Chest CT October 06, 2017. FINDINGS: Lung volumes are normal. Lungs are clear. There is no pneumothorax or pleural effusion. Car diac size is at the upper limits of normal. Mediastinal contours are normal. There is no evidence for pulmonary edema. Slight right infrahilar hazy opacity is likely related to overlying soft tissues. IMPRESSION: No acute cardiopulmonary findings. ACT 112: Negative or not required by law. Electronically signed by: Tony Tapia M.D. 09/14/2021 8:46 AM
[2021-09-14] MEDS ORDERED: GABAPENTIN 600 MG TAB PO SCH ×2 (09:15→23:15)
--- NOTE | 2021-09-14 10:35 | Electrocardiogram Report ---
Test Reason : Blood Pressure : / mmHG Vent. Rate : 084 BPM Atrial Rate : 084 BPM P-R Int : 118 ms QRS Dur : 090 ms QT Int : 400 ms P-R-T Axes : 014 027 039 degrees QTc Int : 472 ms Poor data quality, interpretation may be adversely affected Normal sinus rhythm Normal ECG No previous ECGs available Confirmed by All Laura ([id number]) on 09/14/2021 10:34:54 AM Referred By: REFERRED SELF Confirmed By:All Laura
--- NOTE | 2021-09-14 12:39 | Psychiatric Consultation ---
Date of Consultation September 14, 2021 Impression / Recommendations Impression 51 yo female with unspecified depression and Etoh dependence (reports hx of withdrawal seizures) presenting s/p reported significant ingestion of metoprolol. She works as an [employer] and selectively took it due to radha/toxicity profile. (1) Depressive disorder, not elsewhere classified: patient is not able to leave the hospital AMA, continue 1-on-1 s/p OD pending psychiatric placement. She is currently agreeable to a voluntary admission when medically cleared. continue Prozac for now. continue AWSS protocol. Psych History Identifying Data Danielle is a 51 yo female from [place] admitted medically following an OD attempt with a beta jil. Chief Complaint s/p OD--reports taking anywhere from 50-90 metoprolol 50 mg tablets. History of Present Illness The patient remains rather sedated following OD or from Neurontin loading as part of AWSS protocol. BP and P have been relatively unremarkable. Patient indicated that doesn't really want to talk "about this now" and attributes stre ss/her drinking to "deep-seated" family issues. She denied any vegetative symptoms of depression and was rather non-committal re: current SI but states she is willing for inpatient mental health treatment when medically cleared. She did confirm drinking 1/5 of vodka/day for last month. Past Psychiatric History Previous Psych History: denies Previous Psych Admissions: denies History of Previous Suicide Attempt: No Past Medication Trials: Prozac by PCP Allergies Allergy/AdvReac Type Severity Reaction Status Date / Time oxycodone Allergy Intermediate HIVES Verified 09/14/21 02:45 Home Medications Medication Instructions Recorded Confirmed Type albuterol sulfate 90 mcg/actuation 2 puff INHALATION QID PRN 08/06/21 09/14/21 History aerosol inhaler aspirin 81 mg capsule 81 mg PO QAM 08/06/21 09/14/21 History atorvastatin 80 mg tablet 80 mg PO QAM 08/06/21 09/14/21 History cholecalciferol (vitamin D3) 25 25 mcg PO QAM 08/06/21 09/14/21 History mcg (1,000 unit) tablet (Vitamin D3) cyanocobalamin (vitamin B-12) 1,000 mcg PO QAM 08/06/21 09/14/21 History 1,000 mcg tablet (Vitamin B-12) fluoxetine 40 mg capsule 80 mg PO QAM 08/06/21 09/14/21 History ibuprofen 800 mg tablet 800 mg PO QAM 08/06/21 09/14/21 History losartan 100 mg tablet 100 mg PO QAM 08/06/21 09/14/21 History metoprolol succinate 50 mg 50 mg PO QAM 08/06/21 09/14/21 History tablet,extended release 24 hr pantoprazole 40 mg tablet,delayed 40 mg PO QAM 08/06/21 09/14/21 History release ascorbic acid (vitamin C) 2,000 mg 2,000 mg PO DAILY 09/14/21 09/14/21 History tablet,extended release Personal History Beliefs That Will Affect Care: None Patient History Medical History Anxiety Chronic back pain Chronic obstructive pulmonary disease inhaler prn Depression Hyperlipidemia Hypertension Osteoarthritis Surgical History History of bilateral tubal ligation History of breast biopsy benign History of dilatation and curettage History of endometrial ablation History of gynecologic surgery vulvectomy History of hysterectomy History of tooth extraction History of wisdom tooth extraction Family History Uncle Family history of malignant hyperthermia Social History Smoking Status: Current every day smoker Tobacco Type: Cigarettes Cigarettes Per Day: Pack; Second Hand Exposure: No; Do You Dip or Chew Tobacco: No; Tobacco Cessation Education Requested by Patient: No Hx Alcohol Use: Yes Alcohol type: hard liquor Hx Substance Use: Yes Last Used Substance: Unknown Last Used Substance Other:: Has not used in years per pt. 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 Vital Signs (Past 24 Hours): Last Vital Signs Temp 36.5 C 09/14/21 10:57 Pulse 72 09/14/21 10:57 Resp 20 09/14/21 10:57 BP 143/88 H 09/14/21 10:57 Pulse Ox 98 09/14/21 10:57 Review of Systems Unobtainable due to cognitive status Results & Data (PSY) Laboratory Results 09/14/21 09/14/21 09/14/21 Range/Units 02:35 02:15 02:15 WBC (4.8-10.8) K/uL RBC (4.2-5.4) M/uL Hgb (12.0-16.0) g/dL Hct (37-47) % MCV (80-100) fL MCH (25-34) pg MCHC (32-36) g/dL RDW Std Deviation (36.4-46.3) fL RDW Coeff of Gwyn (11.5-14.5) % Plt Count (130-400) K/uL MPV (7.4-10.4) fL Immature Gran % (Auto) % Neut % (Auto) % Lymph % (Auto) % [place] % (Auto) % Eos % (Auto) % Baso % (Auto) % Neut # (Auto) (1.4-6.5) K/uL Lymph # (Auto) (1.2-3.4) K/uL [place] # (Auto) (0.11-0.59) K/uL Eos # (Auto) (0-0.5) K/uL Baso # (Auto) (0-0.2) K/uL Immature Gran # (Auto) (0.00-0.02) K/uL Sodium (136-145) mmol/L Potassium (3.5-5.1) mmol/L Chloride (98-107) mmol/L Carbon Dioxide (21-32) mmol/L Anion Gap (3-11) BUN (6-23) mg/dl Creatinine (0.6-1.2) mg/dl Est Cr Clr Drug Dosing Est GFR ( Amer) ml/min Est GFR (Non-Af Amer) ml/min BUN/Creatinine Ratio (10-20) Glucose (70-99(Fasting)) mg/dl Calcium (8.5-10.1) mg/dl Magnesium (1.7-2.4) mg/dl Total Bilirubin (0.2-1.0) mg/dl AST (13-39) U/L ALT (7-52) U/L Alkaline Phosphatase (34-104) U/L Total Creatine Kinase (26-192) U/L Troponin I (0-0.04) ng/ml Total Protein (6.0-8.3) gm/dl Albumin (3.4-5.0) gm/dl Globulin (2.5-4.0) gm/dl Albumin/Globulin Ratio (0.9-2) Urine Color Yellow Urine Appearance Clear (Clear) Urine pH 6.0 (4.5-7.5) Ur Specific [place] 1.005 (1.000-1.030) Urine Protein Negative (Negative) Urine Glucose (UA) Negative (Negative) Urine Ketones Negative (Negative) Urine Blood Negative (Negative) Urine Nitrite Negative (Negative) Urine Bilirubin Negative (Negative) Urine Urobilinogen Negative (Negative) Ur Leukocyte Esterase Negative (Negative) Salicylates (3.0-30) mg/dl Urine Opiates Screen Neg (Neg) Ur Methadone, Qual Neg (Neg) Acetaminophen (10-30) ug/ml Urine Barbiturates Neg (Neg) Ur Phencyclidine (PCP) Neg (Neg) U Amphetamin/Meth Scrn Neg (Neg) MDMA (Ecstasy) Screen Neg (Neg) U Benzodiazepines Scrn Neg (Neg) Ur Cocaine Metabolite Neg (Neg) U Marijuana (THC) Screen Neg (Neg) Ethyl Alcohol mg/dL (<10.0) mg/dl SARS-CoV-2, RNA, NAAT NEGATIVE (NEGATIVE) 09/14/21 09/14/21 09/14/21 Range/Units 01:39 01:39 01:39 WBC 11.39 H (4.8-10.8) K/uL RBC 3.64 L (4.2-5.4) M/uL Hgb 12.4 (12.0-16.0) g/dL Hct 37.2 (37-47) % MCV 102.2 H (80-100) fL MCH 34.1 H (25-34) pg MCHC 33.3 (32-36) g/dL RDW Std Deviation 54.0 H (36.4-46.3) fL RDW Coeff of Gwyn 14.5 (11.5-14.5) % Plt Count 342 (130-400) K/uL MPV 10.3 (7.4-10.4) fL Immature Gran % (Auto) 1.2 % Neut % (Auto) 63.5 % Lymph % (Auto) 26.6 % [place] % (Auto) 6.4 % Eos % (Auto) 1.8 % Baso % (Auto) 0.5 % Neut # (Auto) 7.22 H (1.4-6.5) K/uL Lymph # (Auto) 3.03 (1.2-3.4) K/uL [place] # (Auto) 0.73 H (0.11-0.59) K/uL Eos # (Auto) 0.21 (0-0.5) K/uL Baso # (Auto) 0.06 (0-0.2) K/uL Immature Gran # (Auto) 0.14 H (0.00-0.02) K/uL Sodium (136-145) mmol/L Potassium (3.5-5.1) mmol/L Chloride (98-107) mmol/L Carbon Dioxide (21-32) mmol/L Anion Gap (3-11) BUN (6-23) mg/dl Creatinine (0.6-1.2) mg/dl Est Cr Clr Drug Dosing Est GFR ( Amer) ml/min Est GFR (Non-Af Amer) ml/min BUN/Creatinine Ratio (10-20) Glucose (70-99(Fasting)) mg/dl Calcium (8.5-10.1) mg/dl Magnesium (1.7-2.4) mg/dl Total Bilirubin (0.2-1.0) mg/dl AST (13-39) U/L ALT (7-52) U/L Alkaline Phosphatase (34-104) U/L Total Creatine Kinase (26-192) U/L Troponin I (0-0.04) ng/ml Total Protein (6.0-8.3) gm/dl Albumin (3.4-5.0) gm/dl Globulin (2.5-4.0) gm/dl Albumin/Globulin Ratio (0.9-2) Urine Color Urine Appearance (Clear) Urine pH (4.5-7.5) Ur Specific [place] (1.000-1.030) Urine Protein (Negative) Urine Glucose (UA) (Negative) Urine Ketones (Negative) Urine Blood (Negative) Urine Nitrite (Negative) Urine Bilirubin (Negative) Urine Urobilinogen (Negative) Ur Leukocyte Esterase (Negative) Salicylates < 3.0 L (3.0-30) mg/dl Urine Opiates Screen (Neg) Ur Methadone, Qual (Neg) Acetaminophen < 3 L (10-30) ug/ml Urine Barbiturates (Neg) Ur Phencyclidine (PCP) (Neg) U Amphetamin/Meth Scrn (Neg) MDMA (Ecstasy) Screen (Neg) U Benzodiazepines Scrn (Neg) Ur Cocaine Metabolite (Neg) U Marijuana (THC) Screen (Neg) Ethyl Alcohol mg/dL 134.1 H (<10.0) mg/dl SARS-CoV-2, RNA, NAAT (NEGATIVE) 09/14/21 Range/Units 01:39 WBC (4.8-10.8) K/uL RBC (4.2-5.4) M/uL Hgb (12.0-16.0) g/dL Hct (37-47) % MCV (80-100) fL MCH (25-34) pg MCHC (32-36) g/dL RDW Std Deviation (36.4-46.3) fL RDW Coeff of Gwyn (11.5-14.5) % Plt Count (130-400) K/uL MPV (7.4-10.4) fL Immature Gran % (Auto) % Neut % (Auto) % Lymph % (Auto) % [place] % (Auto) % Eos % (Auto) % Baso % (Auto) % Neut # (Auto) (1.4-6.5) K/uL Lymph # (Auto) (1.2-3.4) K/uL [place] # (Auto) (0.11-0.59) K/uL Eos # (Auto) (0-0.5) K/uL Baso # (Auto) (0-0.2) K/uL Immature Gran # (Auto) (0.00-0.02) K/uL Sodium 138 (136-145) mmol/L Potassium 4.0 (3.5-5.1) mmol/L Chloride 106 (98-107) mmol/L Carbon Dioxide 20 L (21-32) mmol/L Anion Gap 12 H (3-11) BUN 16 (6-23) mg/dl Creatinine 0.67 (0.6-1.2) mg/dl Est Cr Clr Drug Dosing Not Reportable Est GFR ( Amer) 118.8 ml/min Est GFR (Non-Af Amer) 102.5 ml/min BUN/Creatinine Ratio 23.9 H (10-20) Glucose 100 H (70-99(Fasting)) mg/dl Calcium 9.2 (8.5-10.1) mg/dl Magnesium 1.4 L (1.7-2.4) mg/dl Total Bilirubin 0.2 (0.2-1.0) mg/dl AST 19 (13-39) U/L ALT 17 (7-52) U/L Alkaline Phosphatase 90 (34-104) U/L Total Creatine Kinase 128 (26-192) U/L Troponin I < 0.03 (0-0.04) ng/ml Total Protein 6.9 (6.0-8.3) gm/dl Albumin 4.3 (3.4-5.0) gm/dl Globulin 2.6 (2.5-4.0) gm/dl Albumin/Globulin Ratio 1.7 (0.9-2) Urine Color Urine Appearance (Clear) Urine pH (4.5-7.5) Ur Specific [place] (1.000-1.030) Urine Protein (Negative) Urine Glucose (UA) (Negative) Urine Ketones (Negative) Urine Blood (Negative) Urine Nitrite (Negative) Urine Bilirubin (Negative) Urine Urobilinogen (Negative) Ur Leukocyte Esterase (Negative) Salicylates (3.0-30) mg/dl Urine Opiates Screen (Neg) Ur Methadone, Qual (Neg) Acetaminophen (10-30) ug/ml Urine Barbiturates (Neg) Ur Phencyclidine (PCP) (Neg) U Amphetamin/Meth Scrn (Neg) MDMA (Ecstasy) Screen (Neg) U Benzodiazepines Scrn (Neg) Ur Cocaine Metabolite (Neg) U Marijuana (THC) Screen (Neg) Ethyl Alcohol mg/dL (<10.0) mg/dl SARS-CoV-2, RNA, NAAT (NEGATIVE) Medications Administered Aspirin (Aspirin 81 Mg Ectab) [facility] [facility]: 10/14/21 08:59 Last Admin: 09/14/21 08:39 Dose: 81 mg Documented by: [id number] Atorvastatin Calcium (Atorvastatin 40 Mg Tab) 80 mg PO QAM [facility] Stop: 10/14/21 08:59 Last Admin: 09/14/21 08:40 Dose: 80 mg Documented by: [id number] Enoxaparin Sodium (Enoxaparin Inj 40 Mg/0.4 Ml Syr) 40 mg SQ QAM [facility] Stop: 10/14/21 08:59 Last Admin: 09/14/21 08:40 Dose: 40 mg Documented by: [id number] Fluoxetine HCl (Fluoxetine Hcl 20 Mg Cap) 80 [facility] [place] Stop: 10/14/21 08:59 Last Admin: 09/14/21 08:40 Dose: 80 mg Documented by: [id number] Folic Acid (Folic Acid 1 Mg Tab) [facility] [place] Stop: 10/14/21 08:59 Last Admin: 09/14/21 08:40 Dose: 1 mg Documented by: [id number] Gabapentin (Gabapentin 600mg Q6h Dose) 600 mg PO Q6H [facility] Stop: 09/14/21 16:01 Last Admin: 09/14/21 08:43 Dose: 600 mg Documented by: [id number] Lactated Ringer's (Lr) 1,000 mls @ 80 mls/hr IV .[id number] ONE Stop: 09/14/21 15:36 Last Admin: 09/14/21 03:19 Dose: 80 mls/hr Documented by: [id number] Miscellaneous (Remove Nicoderm Patch) 1 ea N/A [id number] [facility] Stop: 10/14/21 08:58 Last Admin: 09/14/21 08:39 Dose: 1 ea Documented by: [id number] Multivitamins (Multivitamin Tab) 1 [facility] [place] Stop: 10/14/21 08:59 Last Admin: 09/14/21 08:40 Dose: 1 tab Documented by: [id number] Pantoprazole Sodium (Pantoprazole 40 Mg Tab) 40 [facility] [place] Stop: 10/14/21 08:59 Last Admin: 09/14/21 08:40 Dose: 40 mg Documented by: [id number] Coding Level of Care Code 17318 Inpt Consult Level 3 Diagnoses Depressive disorder, not elsewhere classified F32.89
--- NOTE | 2021-09-14 13:57 | Hospitalist Progress Note ---
Date of Service September 14, 2021 Assessment & Plan (1) Drug overdose: Plan: Intentional overdose Suspected Suicidal attempt Depression Patient states taking 50 tablets of Metoprolol --CXR:No acute cardiopulmonary findings. 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 HTN Metoprolol on hold Monitor GERD Continue PPI HLP On Statin DVT Px: Lovenox SQ Code Status Full code Admission and Anticipated Discharge Date Admission Date: September 14, 2021 Subjective Patient is seen and examined bedside States feeling tired Denies any suicidal thoughts Denies any chest pain, shortness of breath, dizziness, nausea, abdominal pain Offers no other complaints No bradycardia on monitor Review of Systems Review of Systems: All systems reviewed & are unremarkable except as noted in Subjective Physical Exam Physical Exam: Physical Exam: Vitals signs as noted above General Appearance:Obese, no apparent distress Head: normocephalic, Atraumatic Eyes: normal inspection, EOMI Neck: supple, Trachea midline Respiratory/Chest: Normal breath sounds, CTA, No accessory muscle use Cardiovascular: S1, S2, No murmur Abdomen/GI:Soft, Non tender, Bowel sounds present Extremities/Musculoskeletal:normal inspection, no edema Neurologic/Psych:AAOX3, grossly no focal neurological deficits Skin: normal color, warm Results & Data Results & Data ([facility]) Vital Signs (Past 12 Hours) Vital Signs Temp Pulse Pulse Resp BP BP Pulse Ox 09/14/21 10:57 36.5 C 72 20 143/88 H 98 09/14/21 07:02 72 18 130/61 95 09/14/21 05:52 74 09/14/21 04:10 37.0 C 09/14/21 04:00 37.0 C 76 16 143/82 H 97 09/14/21 03:40 76 18 128/88 97 09/14/21 03:20 77 16 128/80 98 09/14/21 02:23 82 16 97 09/14/21 02:08 86 22 127/96 96 Laboratory Results Short CBC 09/14/21 Range/Units 01:39 WBC 11.39 H (4.8-10.8) K/uL Hgb 12.4 (12.0-16.0) g/dL Hct 37.2 (37-47) % Plt Count 342 (130-400) K/uL BMP 09/14/21 01:39 Sodium 138 Potassium 4.0 Chloride 106 Carbon Dioxide 20 L BUN 16 Creatinine 0.67 Glucose 100 H Calcium 9.2 Cardiac Enzymes 09/14/21 Range/Units 01:39 Total Creatine Kinase 128 (26-192) U/L Troponin I < 0.03 (0-0.04) ng/ml Liver Function 09/14/21 Range/Units 01:39 Total Bilirubin 0.2 (0.2-1.0) mg/dl AST 19 (13-39) U/L ALT 17 (7-52) U/L Alkaline Phosphatase 90 (34-104) U/L Albumin 4.3 (3.4-5.0) gm/dl Urine 09/14/21 Range/Units 02:15 Urine Color Yellow Urine Appearance Clear (Clear) Urine pH 6.0 (4.5-7.5) Ur Specific [place] 1.005 (1.000-1.030) Urine Protein Negative (Negative) Urine Glucose (UA) Negative (Negative) (1) Drug overdose Encounter type: initial encounter Injury intent: intentional self-harm Qualified Code(s): T50.902A - Poisoning by unspecified drugs, medicaments and biological substances, intentional self-harm, initial encounter
[2021-09-15] MEDS ORDERED: LORazepam 2 MG/1 ML VIAL ONE (00:39)
[2021-09-15] MEDS: GABAPENTIN 600MG Q8H DOSE PO SCH ×3 (05:21→15:41)
[2021-09-15] MEDS: ENOXAPARIN INJ 40 MG/0.4 ML SYR SQ SCH (07:56)
[2021-09-15] MEDS: MULTIVITAMIN TAB PO SCH (08:00)
[2021-09-15] MEDS: THIAMINE HCL 100 MG TAB PO SCH (08:00)
[2021-09-15] MEDS: PANTOprazole 40 MG TAB PO SCH (08:00)
[2021-09-15] MEDS: ASPIRIN 81 MG ECTAB PO SCH (08:01)
[2021-09-15] MEDS: FLUoxetine HCL 20 MG CAP PO SCH (08:01)
[2021-09-15] MEDS: FOLIC ACID 1 MG TAB PO SCH (08:01)
[2021-09-15] MEDS: ATORVASTATIN 40 MG TAB PO SCH (08:01)
[2021-09-15] MEDS ORDERED: LORazepam 2 MG/1 ML VIAL IV STA (08:07)
[2021-09-15] MEDS ORDERED: hydrALAZINE HCL 20 MG/ML VIAL IV PRN (08:09)
[2021-09-15 08:51] LABS: Basophils # (auto) 0.04 K/uL (0-0.2); Basophils % (auto) 0.4 %; Eosinophils # (auto) 0.18 K/uL (0-0.5); Eosinophils % (auto) 1.6 %; Hematocrit (blood only) 37.2 % (37-47); Hemoglobin 12.4 g/dL (12.0-16.0); Immature Granulocytes # (auto) 0.06 K/uL (0.00-0.02); Immature Granulocytes % (auto) 0.5 %; Lymphocytes # (auto) 2.74 K/uL (1.2-3.4); Mean Corpuscular Hemoglobin 34.3 pg (25-34); Mean Corpuscular Hgb Conc 33.3 g/dL (32-36); Mean Platelet Volume 10.7 fL (7.4-10.4); Monocytes # (auto) 0.54 K/uL (0.11-0.59); Monocytes % (auto) 4.9 %; Neutrophils % (auto) 67.6 %; Platelet Count 326 K/uL (130-400); RDW Coefficient of Variation 14.5 % (11.5-14.5); RDW Standard Deviation 55.7 fL (36.4-46.3); Red Blood Count 3.61 M/uL (4.2-5.4); White Blood Count 10.96 K/uL (4.8-10.8)
[2021-09-15] MEDS: LOSARTAN POTASSIUM 50 MG TAB PO SCH (09:05)
[2021-09-15 09:19] LABS: BUN Creatinine Ratio 20.3 (10-20); Calcium 8.7 mg/dl (8.5-10.1); Est GFR (African American) 101.2 ml/min; Est GFR (Non-African American) 87.3 ml/min; Magnesium 1.8 mg/dl (1.7-2.4); Potassium 3.8 mmol/L (3.5-5.1)
[2021-09-15] MEDS: NICOTINE 21 MG/24 HR TDSY TD SCH (10:11)
--- NOTE | 2021-09-15 19:40 | Hospitalist Progress Note ---
Date of Service September 15, 2021 Assessment & Plan (1) Drug overdose: Plan: Intentional overdose Suspected Suicidal attempt Depression Patient states taking 50 tablets of Metoprolol --CXR:No acute cardiopulmonary findings. 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 HTN BP elevated Restart Losartan Hold Metoprolol for now IV hydralazine PRN Monitor GERD Continue PPI HLP On Statin DVT Px: Lovenox SQ Code Status Full code Admission and Anticipated Discharge Date Admission Date: September 14, 2021 Subjective Patient is seen and examined bedside Very Sleepy during my encounter Anxious earlier today Denies any chest pain, shortness of breath, dizziness, nausea, abdominal pain Review of Systems Review of Systems: All systems reviewed & are unremarkable except as noted in Subjective Physical Exam Physical Exam: Physical Exam: Vitals signs as noted above General Appearance:Obese, no apparent distress Head: normocephalic, Atraumatic Eyes: normal inspection, EOMI Neck: supple, Trachea midline Respiratory/Chest: Normal breath sounds, CTA, No accessory muscle use Cardiovascular: S1, S2, No murmur Abdomen/GI:Soft, Non tender, Bowel sounds present Extremities/Musculoskeletal:normal inspection, no edema Neurologic/Psych:AAOX3, grossly no focal neurological deficits Skin: normal color, warm Results & Data Results & Data ([facility]) Vital Signs (Past 12 Hours) Vital Signs Temp Pulse Resp BP Pulse Ox 09/15/21 15:00 37 C 69 18 148/95 H 96 09/15/21 12:29 74 14 175/100 H 95 09/15/21 10:13 72 14 151/69 H 09/15/21 07:53 36.9 C 76 14 191/105 H 96 Laboratory Results Short CBC 09/15/21 Range/Units 07:51 WBC 10.96 H (4.8-10.8) K/uL Hgb 12.4 (12.0-16.0) g/dL Hct 37.2 (37-47) % Plt Count 326 (130-400) K/uL BMP 09/15/21 07:51 Sodium 137 Potassium 3.8 Chloride 104 Carbon Dioxide 25 BUN 16 Creatinine 0.79 Glucose 123 H Calcium 8.7 (1) Drug overdose Encounter type: initial encounter Injury intent: intentional self-harm Qualified Code(s): T50.902A - Poisoning by unspecified drugs, medicaments and biological substances, intentional self-harm, initial encounter
[2021-09-15] MEDS: LORazepam 0.5 MG TAB PO PRN (22:06)
[2021-09-16] MEDS ORDERED: GABAPENTIN 600 MG TAB PO SCH (03:15)
[2021-09-16] MEDS: GABAPENTIN 600MG Q12H DOSE PO SCH ×2 (04:02→16:07)
[2021-09-16 07:12] LABS: BUN Creatinine Ratio 23.7 (10-20); Calcium 8.8 mg/dl (8.5-10.1); Creatinine Clr Calc Pharmacy 98.8 ml/min; Est GFR (Non-African American) 91.5 ml/min; Magnesium 1.8 mg/dl (1.7-2.4); Potassium 4.1 mmol/L (3.5-5.1)
[2021-09-16] MEDS: ENOXAPARIN INJ 40 MG/0.4 ML SYR SQ SCH (09:41)
[2021-09-16] MEDS: ATORVASTATIN 40 MG TAB PO SCH (09:41)
[2021-09-16] MEDS: ASPIRIN 81 MG ECTAB PO SCH (09:41)
[2021-09-16] MEDS: FLUoxetine HCL 20 MG CAP PO SCH (09:42)
[2021-09-16] MEDS: FOLIC ACID 1 MG TAB PO SCH (09:42)
[2021-09-16] MEDS: LOSARTAN POTASSIUM 50 MG TAB PO SCH (09:43)
[2021-09-16] MEDS: MULTIVITAMIN TAB PO SCH (09:43)
[2021-09-16] MEDS: PANTOprazole 40 MG TAB PO SCH (09:43)
[2021-09-16] MEDS: THIAMINE HCL 100 MG TAB PO SCH (09:43)
[2021-09-16] MEDS: NICOTINE 21 MG/24 HR TDSY TD SCH (09:44)
--- NOTE | 2021-09-16 12:21 | Psychiatric Progress Note ---
Date of Service September 16, 2021 Impression / Recommendations Impression 51 yo female with unspecified depression and Etoh dependence (reports hx of withdrawal seizures) presenting s/p reported significant ingestion of metoprolol. 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 09/16/21: remains acutely suicidal (would repeat OD if not hospitalized) with 1-on-1 pending medical clearance and psych placement. (1) Depressive disorder, not elsewhere classified: (2) Alcohol use disorder: has indicated willingness for 201 when medically cleared. Interval History Identifying Information Danielle is a 51 yo female from [place] admitted medically following an OD attempt with a beta jil. Chief Complaint alcohol withdrawal Review of Systems Notes patient is unable to provide Subjective Subjective Patient was seen, interval progress reviewed. 1-on-1 at bedside. Since last contact patient has been more forthcoming with nurses and clearly describes the ingestion as a suicide attempt and if she was not in the hospital that she would try again. She reported significant EToh abuse/dependence. She has been quite sedated at times on the floor. Has requested prn Ativan for anxiety at times. Reports conflict with mother/argument was the inciting event and does have issues with son across the street who is dx bipolar. Physical Exam Psychiatric patient is currently tired, unable to participate fully Vital Signs (Past 24 Hours) Last Vital Signs Temp 37 C 09/16/21 11:32 Pulse 70 09/16/21 11:32 Resp 16 09/16/21 11:32 BP 156/99 H 09/16/21 11:32 Pulse Ox 95 09/16/21 11:32 Results & Data ([facility]) Laboratory Results Laboratory Results - last 24 hr 09/16/21 06:17 Sodium 136 Potassium 4.1 Chloride 104 Carbon Dioxide 24 Anion Gap 8 BUN 18 Creatinine 0.76 Est Cr Clr Drug Dosing 98.8 Est GFR ( Amer) 106.0 Est GFR (Non-Af Amer) 91.5 BUN/Creatinine Ratio 23.7 H Glucose 93 Calcium 8.8 Magnesium 1.8 Current Inpatient Medications Current Inpatient Medications: Current Inpatient Medications Acetaminophen (Acetaminophen 325 Mg Tab) 650 mg PO Q4H PRN PRN Reason: Pain or Fever Stop: 10/14/21 04:09 Aspirin (Aspirin 81 Mg Ectab) 81 mg PO QAM COUNTS INCLUDE 234 BEDS AT THE [facility] Stop: 10/14/21 08:59 Last Admin: 09/16/21 09:41 Dose: 81 mg Documented by: Atorvastatin Calcium (Atorvastatin 40 Mg Tab) 80 mg PO QAM COUNTS INCLUDE 234 BEDS AT THE [facility] Stop: 10/14/21 08:59 Last Admin: 09/16/21 09:41 Dose: 80 mg Documented by: Atropine Sulfate (Atropine Sulfate 0.1 Mg/Ml 10ml Syr) 1 mg IV Q3M PRN PRN Reason: symptomatic bradycardia Stop: 10/14/21 04:09 Enoxaparin Sodium (Enoxaparin Inj 40 Mg/0.4 Ml Syr) 40 mg SQ [facility] Stop: 10/14/21 08:59 Last Admin: 09/16/21 09:41 Dose: 40 mg Documented by: Fluoxetine HCl (Fluoxetine Hcl 20 Mg Cap) 80 mg PO [facility] Stop: 10/14/21 08:59 Last Admin: 09/16/21 09:42 Dose: 80 mg Documented by: Folic Acid (Folic Acid 1 Mg Tab) 1 mg PO [facility] Stop: 10/14/21 08:59 Last Admin: 09/16/21 09:42 Dose: 1 mg Documented by: Gabapentin (Gabapentin 600mg Q12h Dose) 600 mg PO Q12H COUNTS INCLUDE 234 BEDS AT THE [facility] Stop: 09/16/21 16:01 Last Admin: 09/16/21 04:02 Dose: 600 mg Documented by: Gabapentin (Gabapentin 600mg X1 Dose) 600 mg PO Q24H COUNTS INCLUDE 234 BEDS AT THE [facility] Stop: 09/17/21 16:01 Hydralazine HCl (Hydralazine Hcl 20 Mg/Ml Vial) 10 mg IV Q6H PRN PRN Reason: Hypertension SBP>180orDBP>100 Stop: 10/15/21 08:08 Last Admin: 09/15/21 08:17 Dose: 10 mg Documented by: Promethazine HCl 12.5 mg/ (Sodium Chloride) 50.5 mls @ 202 mls/hr IV Q6H PRN PRN Reason: Nausea And Vomiting Stop: 10/14/21 04:09 Ibuprofen (Ibuprofen 200 Mg Tab) 200 mg PO Q6H PRN PRN Reason: Mild Pain Stop: 10/14/21 04:09 Lorazepam (Lorazepam 2 Mg/1 Ml Vial) 1 mg IV UD PRN; Protocol PRN Reason: EtOH Withdrawl AWSS Score 6,7 Stop: 10/14/21 04:09 Last Admin: 09/15/21 00:42 Dose: 1 mg Documented by: Lorazepam (Lorazepam 2 Mg/1 Ml Vial) 2 mg IV UD PRN; Protocol PRN Reason: EtOH Withdrawl AWSS Score 8,9 Stop: 10/14/21 04:09 Lorazepam (Lorazepam 2 Mg/1 Ml Vial) 3 mg IV ONCE PRN; Protocol PRN Reason: EtOH Withdrawl AWSS Score >=10 Lorazepam (Lorazepam 0.5 Mg Tab) 0.5 mg PO Q6H PRN PRN Reason: Anxiety Stop: 10/15/21 10:54 Last Admin: 09/15/21 22:06 Dose: 0.5 mg Documented by: Losartan Potassium (Losartan Potassium 50 Mg Tab) 100 mg PO [facility] Stop: 10/15/21 08:59 Last Admin: 09/16/21 09:43 Dose: 100 mg Documented by: Miscellaneous (Remove Nicoderm Patch) 1 ea N/A DAILY@0859 COUNTS INCLUDE 234 BEDS AT THE [facility] Stop: 10/14/21 08:58 Last Admin: 09/16/21 09:40 Dose: 1 ea Documented by: Multivitamins (Multivitamin Tab) 1 tab PO [facility] Stop: 10/14/21 08:59 Last Admin: 09/16/21 09:43 Dose: 1 tab Documented by: Nicotine (Nicotine 21 Mg/24 Hr Tdsy) 21 mg TD [facility] Stop: 10/15/21 08:59 Last Admin: 09/16/21 09:44 Dose: 21 mg Documented by: Pantoprazole Sodium (Pantoprazole 40 Mg Tab) 40 mg PO [facility] Stop: 10/14/21 08:59 Last Admin: 09/16/21 09:43 Dose: 40 mg Documented by: Thiamine HCl (Thiamine Hcl 100 Mg Tab) 100 mg PO [facility] Stop: 10/15/21 08:59 Last Admin: 09/16/21 09:43 Dose: 100 mg Documented by:
--- NOTE | 2021-09-16 16:54 | Hospitalist Progress Note ---
Date of Service September 16, 2021 Assessment & Plan (1) Drug overdose: Plan: Intentional overdose Suspected Suicidal attempt Depression Patient states taking 50 tablets of Metoprolol --CXR:No acute cardiopulmonary findings. 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 HTN BP elevated Continue Losartan Plan to resume Metoprolol tomorrow IV hydralazine PRN Monitor GERD Continue PPI HLP On Statin DVT Px: Lovenox SQ Code Status Full code Admission and Anticipated Discharge Date Admission Date: September 14, 2021 Subjective Patient is seen and examined bedside States feeling tired Offers no other complaints No significant withdrawal symptoms today Denies any chest pain, shortness of breath, dizziness, nausea, abdominal pain Review of Systems Review of Systems: All systems reviewed & are unremarkable except as noted in Subjective Physical Exam Physical Exam: Physical Exam: Vitals signs as noted above General Appearance:Obese, no apparent distress Head: normocephalic, Atraumatic Eyes: normal inspection, EOMI Neck: supple, Trachea midline Respiratory/Chest: Normal breath sounds, CTA, No accessory muscle use Cardiovascular: S1, S2, No murmur Abdomen/GI:Soft, Non tender, Bowel sounds present Extremities/Musculoskeletal:normal inspection, no edema Neurologic/Psych:AAOX3, grossly no focal neurological deficits Skin: normal color, warm Results & Data Results & Data ([facility]) Vital Signs (Past 12 Hours) Vital Signs Temp Pulse Resp BP BP Pulse Ox 09/16/21 16:39 36.9 C 71 16 178/126 H 95 09/16/21 11:32 37 C 70 16 156/99 H 95 09/16/21 06:55 36.8 C 67 16 157/105 H 92 Laboratory Results [facility] 09/16/21 06:17 Sodium 136 Potassium 4.1 Chloride 104 Carbon Dioxide 24 BUN 18 Creatinine 0.76 Glucose 93 Calcium 8.8 (1) Drug overdose Encounter type: initial encounter Injury intent: intentional self-harm Qualified Code(s): T50.902A - Poisoning by unspecified drugs, medicaments and biological substances, intentional self-harm, initial encounter
[2021-09-16] MEDS: LORazepam 0.5 MG TAB PO PRN ×2 (18:01→21:22)
[2021-09-17] MEDS: LORazepam 0.5 MG TAB PO PRN (03:20)
[2021-09-17] MEDS: HYDROCORTISONE 2.5% CR 30 GM TUBE EXT PRN ×2 (04:12→09:46)
[2021-09-17 07:04] LABS: Hematocrit (blood only) 38.1 % (37-47); Hemoglobin 12.4 g/dL (12.0-16.0); Mean Corpuscular Hemoglobin 33.5 pg (25-34); Mean Corpuscular Hgb Conc 32.5 g/dL (32-36); Mean Platelet Volume 10.9 fL (7.4-10.4); Platelet Count 294 K/uL (130-400); RDW Coefficient of Variation 14.6 % (11.5-14.5); RDW Standard Deviation 54.5 fL (36.4-46.3)
[2021-09-17 07:30] LABS: BUN Creatinine Ratio 21.3 (10-20); Calcium 9.7 mg/dl (8.5-10.1); Creatinine Clr Calc Pharmacy 99.6 ml/min; Est GFR (African American) 107.7 ml/min; Est GFR (Non-African American) 92.9 ml/min; Potassium 3.9 mmol/L (3.5-5.1)
[2021-09-17] MEDS ORDERED: METOPROLOL SUCC 50MG EXT REL TAB PO SCH (09:00)
[2021-09-17] MEDS: ASPIRIN 81 MG ECTAB PO SCH (09:40)
[2021-09-17] MEDS: NICOTINE 21 MG/24 HR TDSY TD SCH (09:40)
[2021-09-17] MEDS: MULTIVITAMIN TAB PO SCH (09:41)
[2021-09-17] MEDS: FLUoxetine HCL 20 MG CAP PO SCH (09:41)
[2021-09-17] MEDS: LOSARTAN POTASSIUM 50 MG TAB PO SCH (09:41)
[2021-09-17] MEDS: FOLIC ACID 1 MG TAB PO SCH (09:41)
[2021-09-17] MEDS: PANTOprazole 40 MG TAB PO SCH (09:41)
[2021-09-17] MEDS: THIAMINE HCL 100 MG TAB PO SCH (09:41)
[2021-09-17] MEDS: ATORVASTATIN 40 MG TAB PO SCH (09:41)
[2021-09-17] MEDS: ENOXAPARIN INJ 40 MG/0.4 ML SYR SQ SCH (09:42)
--- NOTE | 2021-09-17 11:21 | Hospitalist Progress Note ---
Date of Service September 17, 2021 Assessment & Plan (1) Drug overdose: Plan: Intentional overdose Suspected Suicidal attempt Depression Patient states taking 50 tablets of Metoprolol --CXR:No acute cardiopulmonary findings. 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 HTN BP elevated Continue Losartan Resume Metoprolol today IV hydralazine PRN Monitor GERD Continue PPI HLP On Statin DVT Px: Lovenox SQ Code Status Full code Admission and Anticipated Discharge Date Admission Date: September 14, 2021 Subjective Patient is seen and examined bedside Denies any chest pain, shortness of breath, dizziness, nausea, abdominal pain Offers no complaints Plan to discharge to mental health unit today Review of Systems Review of Systems: All systems reviewed & are unremarkable except as noted in Subjective Physical Exam Physical Exam: Physical Exam: Vitals signs as noted above General Appearance:Obese, no apparent distress Head: normocephalic, Atraumatic Eyes: normal inspection, EOMI Neck: supple, Trachea midline Respiratory/Chest: Normal breath sounds, CTA, No accessory muscle use Cardiovascular: S1, S2, No murmur Abdomen/GI:Soft, Non tender, Bowel sounds present Extremities/Musculoskeletal:normal inspection, no edema Neurologic/Psych:AAOX3, grossly no focal neurological deficits Skin: normal color, warm Results & Data Results & Data ([facility]) Vital Signs (Past 12 Hours) Vital Signs Temp Pulse Resp BP BP Pulse Ox 09/17/21 07:31 36.9 C 73 20 149/89 H 95 09/17/21 02:58 36.6 C 76 20 138/86 95 Laboratory Results Short CBC 09/17/21 Range/Units 06:04 WBC 10.50 (4.8-10.8) K/uL Hgb 12.4 (12.0-16.0) g/dL Hct 38.1 (37-47) % Plt Count 294 (130-400) K/uL BMP 09/17/21 06:04 Sodium 137 Potassium 3.9 Chloride 104 Carbon Dioxide 25 BUN 16 Creatinine 0.75 Glucose 97 Calcium 9.7 (1) Drug overdose Encounter type: initial encounter Injury intent: intentional self-harm Qualified Code(s): T50.902A - Poisoning by unspecified drugs, medicaments and biological substances, intentional self-harm, initial encounter
--- NOTE | 2021-09-17 11:27 | Discharge Summary ---
Date of Service September 17, 2021 Admission HPI Per Admitting Provider History obtained from patient and records. Medical history significant for mood disorder, GERD, ongoing tobacco/alcohol abuse. Last night, patient allegedly took 50 tablets of metoprolol 50 mg home Rx along with alcohol. Patient admits to personal stressors. Does not want to confirm or deny suicidal intent for now. Patient denies chest pain, S OB, headache, dizziness symptoms. Patient cites history of alcohol withdrawal/seizures. Patient brought to the ER for evaluation. 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 Admission Exam Per Admitting Provider Physical Exam Physical Exam: GENERAL: Paranoid, obese, no respiratory distress SKIN: Normal color, warm HEENT: [place] palpebral conjunctivae, no ptosis, dry buccal mucosa NECK : Supple, short neck, no tenderness CHEST : Decreased breath sounds, no tenderness HEART : RRR, no obvious murmurs ABDOMEN: Some distention, nontender EXTREMITIES : Minimal LE swelling/tenderness, no other conspicuous deformities noted NEUROLOGIC : Coherent, no facial asymmetry, no other gross focality Principal Diagnosis Intentional drug overdose Alcohol use disorder Hypertension Discharge Data Allergies Allergy/AdvReac Type Severity Reaction Status Date / Time oxycodone Allergy Intermediate HIVES Verified 09/14/21 02:45 Consultations 09/14/21 02:30 ED Decision to Admit Stat 09/14/21 04:10 Consult Psychiatry Routine 09/14/21 04:39 Consult Behavioral Health Liaison Routine Hospital Course (1) Drug overdose: Intentional overdose Suspected Suicidal attempt Depression Patient states taking 50 tablets of Metoprolol --CXR:No acute cardiopulmonary findings. 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 HTN BP elevated Continue Losartan Resume Metoprolol today IV hydralazine PRN Monitor GERD Continue PPI HLP On Statin DVT Px: Lovenox SQ Code Status Full code Total Time Total Time Spent Total Time Spent (In Minutes): 45 minutes Discharge Plan Discharge Items Patient Disposition: Transfer Behavioral Health Fac Reason For Visit: BB Overdose Discharge Diagnosis: Intentional drug overdose Alcohol use disorder Hypertension Condition on Discharge: Good Activity: Per Instructions section Exercise/Sports: Gradually increase as tolerated Non-emergency contact: Primary Care Provider and Psychiatrist Call non-emergency contact if: you have any medication questions, your symptoms worsen, your pain is concerning for you and you have a fever Follow-up/Referrals: Orlando Bush MD [Primary Care Provider] - Diet: Heart Healthy Addtl Attending Provider Instructions: Follow up with your primary care physician in 1 week Follow-up with your psychiatrist as recommended. Seek immediate medical attention if your symptoms reoccur or worsen Please take all medications as instructed on discharge list below. Please call if you have any questions or problems. You can reach a [facility] hospitalist on duty at [facility] 24 hours a day by calling [phone] Pending Studies at Discharge: No Stand-Alone Forms: [facility] Skilled Items DNR: No Lines: None Urinary Catheter: No Medications and DC Order Prescriptions: New folic acid 1 mg Tablet 1 mg PO QAM Qty: 30 RF: 0 thiamine HCl (vitamin B1) 100 mg Tablet 100 mg PO QAM Qty: 30 RF: 0 Continued fluoxetine 40 mg Capsule 80 mg PO QAM RF: 0 atorvastatin 80 mg Tablet 80 mg PO QAM RF: 0 ibuprofen 800 mg Tablet 800 mg PO QAM RF: 0 metoprolol succinate 50 mg Tablet Extended Release 24 Hr 50 mg PO QAM RF: 0 cyanocobalamin (vitamin B-12) [Vitamin B-12] 1,000 mcg Tablet 1,000 mcg PO QAM RF: 0 pantoprazole 40 mg Tablet,Delayed Release (Dr/Ec) 40 mg PO QAM RF: 0 albuterol sulfate 90 mcg/actuation Hfa Aerosol Inhaler 2 puff INHALATION QID PRN (Reason: Shortness Of Breath) RF: 0 losartan 100 mg Tablet 100 mg PO QAM RF: 0 cholecalciferol (vitamin D3) [Vitamin D3] 25 mcg (1,000 unit) Tablet 25 mcg PO QAM RF: 0 aspirin 81 mg Capsule 81 mg PO QAM RF: 0 Vitamin C 2,000 mg Tablet Extended Release 2,000 mg PO DAILY RF: 0 Discharge Orders: Discharge Order (Routine); Ordered 09/17/21 Ordered By: Fred Palm Admission Data Admit Date/Time: 09/14/21 03:02 Attending Provider: Fred Palm Admit Provider: Leonardo Hdez Primary Care Provider: Orlando Bush Other Providers: Leonardo Hdez ; Germaine Molina ; Jordana Ross ; Nena Harper ; Chuck Dumont
[2021-09-17] MEDS ORDERED: GABAPENTIN 600 MG TAB PO SCH (15:15)
[2021-09-17] MEDS ORDERED: GABAPENTIN 600MG X1 DOSE PO SCH (16:00)
== END 2021-09-17 12:58 | DRG 918 ==
LOC: ED 01:17 → 2E 03:02

== ENCOUNTER 2021-09-17 11:32 | Inpatient (IN) ==
[2021-09-17] MEDS ORDERED: LORazepam 1 MG TAB PO PRN (12:31)
[2021-09-17] MEDS ORDERED: hydrOXYzine HCl 25 MG TAB PO PRN (12:31)
[2021-09-17] MEDS ORDERED: ACETAMINOPHEN 325 MG TAB PO PRN (12:31)
[2021-09-17] MEDS ORDERED: ALUMINUM/MAGNESIUM SUSP 30 ML UDC PO PRN (12:31)
[2021-09-17] MEDS ORDERED: SODIUM CHLORIDE 0.65% NA SOLN 45 ML (OCEAN) PRN (12:31)
[2021-09-17] MEDS ORDERED: BISMUTH SUBSALICYLATE LIQD 236 ML PO PRN (12:31)
[2021-09-17] MEDS ORDERED: MAGNESIUM HYDROXIDE SUSP 30 ML UDC PO PRN (12:31)
--- NOTE | 2021-09-17 14:19 | History & Physical ---
Date of Service September 17, 2021 Impression / Recommendations Impression Matti is a 51-year-old female with hopelessness, decline in coping, self- medication with Etoh related to family stressors who was transferred from the medical floor s/p intention metoprolol OD. (1) Major depression: (2) Alcohol use disorder: The patient was admitted to the [facility] ([facility] unit) on q15 min checks (behavioral with suicide precautions) for safety. The patient will participate in group, recreational, and milieu therapies and will be offered additional individual and family sessions as clinically appropriate. Brief intervention around substance abuse when able. Risks/benefits/alternatives reviewed re: Prozac given that 80 mg is max dose. She specifically denied OCD. She has been on Prozac for years and doesn't view "my problems as a med issue" and declines to discuss augmentation. The patient's pattern of drinking suggests problematic drinking. Brief intervention was offered and accepted. Intervention was greater than 5 min in length and included assessing readiness to quit, how to reduce or abstain from alcohol, and to set a specific goal for this hospitalization. ball worker will also assist in anticipating barriers to sobriety and in problem-solving for solutions to those problems while arranging for referral to appropriate treatment. The patient is in precontemplation stage with regards to transtheoretical model of change. The patient is advised to decrease alcohol consumption due to depressant effects tendency to disrupt sleep. 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 Needs: therapist, family session Risk Factors Assessment : Yes Do You Have Access To A Gun?: No Health Problems: No Mental Health Diagnoses: Yes Substance Use Disorders: Yes Previous Attempt: No Previous Psychiatric Hospitalization: No Protective Factors Assessment Jainism Beliefs: No : No Responsible for Young Children: Yes Employed: Yes Stable Relationships: No Psychiatric History Identifying Data MATTI MALDONADO is a 51-year-old F who currently lives in [place], has no prior psych history, and was admitted on 09/17/21 12:33 on a 201 voluntary commitment on transfer from the medical floor following an overdose of metoprolol. Chief Complaint beta jil OD History of Present Illness On the pm of 09/13/21 the patient admitted to taking anywhere from 50-90 pills of 50 mg metoprolol following an argument with her mother. 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 Mother has lung CA and seems increasingly irritable, particularly toward the patient's 4 yo great grandchild. The patient's mother doesn't recognize her as her grandson's child and treats her differently from the other children. 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 Other stressors/family conflict is the fact her her son lives in her home with his girlfriend and 3 children. He is reportedly bipolar and has issues with drug use and took $900 from her back account while the patient was in the hospital. The patient admitted to drinking 1/5 of vodka daily for the past month and referred to herself as an "alcoholic". She has no history of rehab and now denies seizure or having a 1/5th of vodka daily. She was loaded with Neurontin on the medical floor and received prn Ativan regularly on the medical floor while on AWSS protocol. 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 She drinks primarily coffee liquor as she likes the taste and views it as low alcohol content in her mudslide. She doesn't feel she has time for therapy and states that she hasn't sought psych care before as went to see someone about ADHD when she was in school and was treated disrespectfully. Past Psychiatric History Current Psychiatric Diagnosis: major depressive disorder Outpatient Services: none Previous Psych Admissions: none Do You Have Access To A Gun?: No History of Previous Suicide Attempt: No Past Medication Trials: on Prozac Allergies Allergy/AdvReac Type Severity Reaction Status Date / Time oxycodone Allergy Intermediate HIVES Verified 09/14/21 02:45 Home Medications Medication Instructions Recorded Confirmed Type albuterol sulfate 90 mcg/actuation 2 puff INHALATION QID PRN 08/06/21 09/14/21 History aerosol inhaler aspirin 81 mg capsule 81 mg PO QAM 08/06/21 09/14/21 History atorvastatin 80 mg tablet 80 mg PO QAM 08/06/21 09/14/21 History cholecalciferol (vitamin D3) 25 25 mcg PO QAM 08/06/21 09/14/21 History mcg (1,000 unit) tablet (Vitamin D3) cyanocobalamin (vitamin B-12) 1,000 mcg PO QAM 08/06/21 09/14/21 History 1,000 mcg tablet (Vitamin B-12) fluoxetine 40 mg capsule 80 mg PO QAM 08/06/21 09/14/21 History ibuprofen 800 mg tablet 800 mg PO QAM 08/06/21 09/14/21 History losartan 100 mg tablet 100 mg PO QAM 08/06/21 09/14/21 History metoprolol succinate 50 mg 50 mg PO QAM 08/06/21 09/14/21 History tablet,extended release 24 hr pantoprazole 40 mg tablet,delayed 40 mg PO QAM 08/06/21 09/14/21 History release ascorbic acid (vitamin C) 2,000 mg 2,000 mg PO DAILY 09/14/21 09/14/21 History tablet,extended release folic acid 1 mg tablet 1 mg PO QAM #30 tab 09/17/21 Rx thiamine HCl (vitamin B1) 100 mg 100 mg PO QAM #30 tab 09/17/21 Rx tablet Family History Family History of: Depression, Anxiety, Alcoholism/Drug Abuse, Other-List under Comment and Bipolar (son, hospitalized at [facility]) Family Mental Health History Comment: son with intellectual disability who does live independently Alcohol History Hx of Alcohol Use Over the Past 12 Months: Yes AUDIT Total Score: 30 Smoking Use Have You Smoked or Used Tobacco Products in the Last 30 Days: Yes tobacco type: cigarettes Smoking Status: Current every day smoker Smoking packs per day: 1 Substance History Hx of Prescription Med Misuse Over the Past 12 Months: No Hx of Over the Counter Med Misuse Over the Past 12 Months: No Hx of Inhalent Misuse Over the Past 12 Months: No Hx of Organic Substance Use Over the Past 12 Months: No Hx of Illegal Substances/Street Drug Use Over Past 12 Months: No Problems as a Result of Past Substance Use: None Identified has tried cocaine in remote past, has used MJ in past Personal History Living Arrangements: Home Highest Grade Completed: Some College (has WINE FERMENTER, completed 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 of RN program and also says she is 1 class from a BA in psych) 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[employer]) Number Of Children: 3 (closest with daughter) Beliefs That Will Affect Care: None Hx Legal Problems: No Psychological Trauma History Comment: family stress Patient History Medical History Anxiety Chronic back pain Chronic obstructive pulmonary disease inhaler prn Depression Hyperlipidemia Hypertension Osteoarthritis Surgical History History of bilateral tubal ligation History of breast biopsy benign History of dilatation and curettage History of endometrial ablation History of gynecologic surgery vulvectomy History of hysterectomy History of tooth extraction History of wisdom tooth extraction Family History Uncle Family history of malignant hyperthermia Social History Smoking Status: Current every day smoker Tobacco Type: Cigarettes Cigarettes Per Day: Pack; Second Hand Exposure: No; Hx Alcohol Use: Yes Alcohol type: hard liquor Hx Substance Use: Yes Last Used Substance: Unknown Last Used Substance Other:: Has not used in years per pt. Preferred Language: Congolese Communication Ability: Effective Squirrel Worker Required: No Beliefs That Will Affect Care: None Current Living Situation: Family Current Living Situation Comment: Lives with mother Feels Safe at Home: Yes Assistive Devices: Glasses Review of Systems Review of Systems: All systems reviewed & are unremarkable except as noted in HPI & below Physical Exam Psychiatric: Orientation: alert and oriented x 3 Apperance: appropriately dressed and appropriately groomed Eye Contact: good eye contact Motor Behavior: no abnormal motor movements Speech: normal rate/rhythm/volume of speech Affect: + depressed affect Mood: + depressed mood Thought Process: goal directed thought process Thought Content: reality based without delusions Suicidal Thoughts: + reports suicidal thoughts ("if not in here") and + reports suicidal plan (overdose) Homicidal Thoughts: denies homicidal thoughts Hallucinations: no auditory hallucinations and no visual hallucinations Cognition: attention grossly intact and language grossly intact Estimated Intelligence: consistent with education level Insight: + limited insight Judgement: + limited judgement Vital Signs (Past 24 Hours): Last Vital Signs Temp 37 C 09/17/21 13:35 Pulse 77 09/17/21 13:35 Resp 14 09/17/21 13:35 BP 144/90 H 09/17/21 13:35 Exam Statement: A physical exam was performed on the [facility] floor by Dr. Mckenzie for the purposes of medical clearance. I accept that physical as correct and adequate for the purposes of the inpatient physical exam. Results & Data ([facility]) Laboratory Results 09/14/21 09/14/21 09/14/21 Range/Units 02:35 02:15 02:15 WBC (4.8-10.8) K/uL RBC (4.2-5.4) M/uL Hgb (12.0-16.0) g/dL Hct (37-47) % MCV (80-100) fL MCH (25-34) pg MCHC (32-36) g/dL RDW Std Deviation (36.4-46.3) fL RDW Coeff of Gwyn (11.5-14.5) % Plt Count (130-400) K/uL MPV (7.4-10.4) fL Immature Gran % (Auto) % Neut % (Auto) % Lymph % (Auto) % Sterling % (Auto) % Eos % (Auto) % Baso % (Auto) % Neut # (Auto) (1.4-6.5) K/uL Lymph # (Auto) (1.2-3.4) K/uL Sterling # (Auto) (0.11-0.59) K/uL Eos # (Auto) (0-0.5) K/uL Baso # (Auto) (0-0.2) K/uL Immature Gran # (Auto) (0.00-0.02) K/uL Sodium (136-145) mmol/L Potassium (3.5-5.1) mmol/L Chloride (98-107) mmol/L Carbon Dioxide (21-32) mmol/L Anion Gap (3-11) BUN (6-23) mg/dl Creatinine (0.6-1.2) mg/dl Est Cr Clr Drug Dosing Est GFR ( Amer) ml/min Est GFR (Non-Af Amer) ml/min BUN/Creatinine Ratio (10-20) Glucose (70-99(Fasting)) mg/dl Calcium (8.5-10.1) mg/dl Magnesium (1.7-2.4) mg/dl Total Bilirubin (0.2-1.0) mg/dl AST (13-39) U/L ALT (7-52) U/L Alkaline Phosphatase (34-104) U/L Total Creatine Kinase (26-192) U/L Troponin I (0-0.04) ng/ml Total Protein (6.0-8.3) gm/dl Albumin (3.4-5.0) gm/dl Globulin (2.5-4.0) gm/dl Albumin/Globulin Ratio (0.9-2) Urine Color Yellow Urine Appearance Clear (Clear) Urine pH 6.0 (4.5-7.5) Ur Specific Howell 1.005 (1.000-1.030) Urine Protein Negative (Negative) Urine Glucose (UA) Negative (Negative) Urine Ketones Negative (Negative) Urine Blood Negative (Negative) Urine Nitrite Negative (Negative) Urine Bilirubin Negative (Negative) Urine Urobilinogen Negative (Negative) Ur Leukocyte Esterase Negative (Negative) Salicylates (3.0-30) mg/dl Urine Opiates Screen Neg (Neg) Ur Methadone, Qual Neg (Neg) Acetaminophen (10-30) ug/ml Urine Barbiturates Neg (Neg) Ur Phencyclidine (PCP) Neg (Neg) U Amphetamin/Meth Scrn Neg (Neg) MDMA (Ecstasy) Screen Neg (Neg) U Benzodiazepines Scrn Neg (Neg) Ur Cocaine Metabolite Neg (Neg) U Marijuana (THC) Screen Neg (Neg) Ethyl Alcohol mg/dL (<10.0) mg/dl SARS-CoV-2, RNA, NAAT NEGATIVE (NEGATIVE) 09/14/21 09/14/21 09/14/21 Range/Units 01:39 01:39 01:39 WBC 11.39 H (4.8-10.8) K/uL RBC 3.64 L (4.2-5.4) M/uL Hgb 12.4 (12.0-16.0) g/dL Hct 37.2 (37-47) % MCV 102.2 H (80-100) fL MCH 34.1 H (25-34) pg MCHC 33.3 (32-36) g/dL RDW Std Deviation 54.0 H (36.4-46.3) fL RDW Coeff of Gwyn 14.5 (11.5-14.5) % Plt Count 342 (130-400) K/uL MPV 10.3 (7.4-10.4) fL Immature Gran % (Auto) 1.2 % Neut % (Auto) 63.5 % Lymph % (Auto) 26.6 % Sterling % (Auto) 6.4 % Eos % (Auto) 1.8 % Baso % (Auto) 0.5 % Neut # (Auto) 7.22 H (1.4-6.5) K/uL Lymph # (Auto) 3.03 (1.2-3.4) K/uL Sterling # (Auto) 0.73 H (0.11-0.59) K/uL Eos # (Auto) 0.21 (0-0.5) K/uL Baso # (Auto) 0.06 (0-0.2) K/uL Immature Gran # (Auto) 0.14 H (0.00-0.02) K/uL Sodium (136-145) mmol/L Potassium (3.5-5.1) mmol/L Chloride (98-107) mmol/L Carbon Dioxide (21-32) mmol/L Anion Gap (3-11) BUN (6-23) mg/dl Creatinine (0.6-1.2) mg/dl Est Cr Clr Drug Dosing Est GFR ( Amer) ml/min Est GFR (Non-Af Amer) ml/min BUN/Creatinine Ratio (10-20) Glucose (70-99(Fasting)) mg/dl Calcium (8.5-10.1) mg/dl Magnesium (1.7-2.4) mg/dl Total Bilirubin (0.2-1.0) mg/dl AST (13-39) U/L ALT (7-52) U/L Alkaline Phosphatase (34-104) U/L Total Creatine Kinase (26-192) U/L Troponin I (0-0.04) ng/ml Total Protein (6.0-8.3) gm/dl Albumin (3.4-5.0) gm/dl Globulin (2.5-4.0) gm/dl Albumin/Globulin Ratio (0.9-2) Urine Color Urine Appearance (Clear) Urine pH (4.5-7.5) Ur Specific Howell (1.000-1.030) Urine Protein (Negative) Urine Glucose (UA) (Negative) Urine Ketones (Negative) Urine Blood (Negative) Urine Nitrite (Negative) Urine Bilirubin (Negative) Urine Urobilinogen (Negative) Ur Leukocyte Esterase (Negative) Salicylates < 3.0 L (3.0-30) mg/dl Urine Opiates Screen (Neg) Ur Methadone, Qual (Neg) Acetaminophen < 3 L (10-30) ug/ml Urine Barbiturates (Neg) Ur Phencyclidine (PCP) (Neg) U Amphetamin/Meth Scrn (Neg) MDMA (Ecstasy) Screen (Neg) U Benzodiazepines Scrn (Neg) Ur Cocaine Metabolite (Neg) U Marijuana (THC) Screen (Neg) Ethyl Alcohol mg/dL 134.1 H (<10.0) mg/dl SARS-CoV-2, RNA, NAAT (NEGATIVE) 09/14/21 Range/Units 01:39 WBC (4.8-10.8) K/uL RBC (4.2-5.4) M/uL Hgb (12.0-16.0) g/dL Hct (37-47) % MCV (80-100) fL MCH (25-34) pg MCHC (32-36) g/dL RDW Std Deviation (36.4-46.3) fL RDW Coeff of Gwyn (11.5-14.5) % Plt Count (130-400) K/uL MPV (7.4-10.4) fL Immature Gran % (Auto) % Neut % (Auto) % Lymph % (Auto) % Sterling % (Auto) % Eos % (Auto) % Baso % (Auto) % Neut # (Auto) (1.4-6.5) K/uL Lymph # (Auto) (1.2-3.4) K/uL Sterling # (Auto) (0.11-0.59) K/uL Eos # (Auto) (0-0.5) K/uL Baso # (Auto) (0-0.2) K/uL Immature Gran # (Auto) (0.00-0.02) K/uL Sodium 138 (136-145) mmol/L Potassium 4.0 (3.5-5.1) mmol/L Chloride 106 (98-107) mmol/L Carbon Dioxide 20 L (21-32) mmol/L Anion Gap 12 H (3-11) BUN 16 (6-23) mg/dl Creatinine 0.67 (0.6-1.2) mg/dl Est Cr Clr Drug Dosing Not Reportable Est GFR ( Amer) 118.8 ml/min Est GFR (Non-Af Amer) 102.5 ml/min BUN/Creatinine Ratio 23.9 H (10-20) Glucose 100 H (70-99(Fasting)) mg/dl Calcium 9.2 (8.5-10.1) mg/dl Magnesium 1.4 L (1.7-2.4) mg/dl Total Bilirubin 0.2 (0.2-1.0) mg/dl AST 19 (13-39) U/L ALT 17 (7-52) U/L Alkaline Phosphatase 90 (34-104) U/L Total Creatine Kinase 128 (26-192) U/L Troponin I < 0.03 (0-0.04) ng/ml Total Protein 6.9 (6.0-8.3) gm/dl Albumin 4.3 (3.4-5.0) gm/dl Globulin 2.6 (2.5-4.0) gm/dl Albumin/Globulin Ratio 1.7 (0.9-2) Urine Color Urine Appearance (Clear) Urine pH (4.5-7.5) Ur Specific Howell (1.000-1.030) Urine Protein (Negative) Urine Glucose (UA) (Negative) Urine Ketones (Negative) Urine Blood (Negative) Urine Nitrite (Negative) Urine Bilirubin (Negative) Urine Urobilinogen (Negative) Ur Leukocyte Esterase (Negative) Salicylates (3.0-30) mg/dl Urine Opiates Screen (Neg) Ur Methadone, Qual (Neg) Acetaminophen (10-30) ug/ml Urine Barbiturates (Neg) Ur Phencyclidine (PCP) (Neg) U Amphetamin/Meth Scrn (Neg) MDMA (Ecstasy) Screen (Neg) U Benzodiazepines Scrn (Neg) Ur Cocaine Metabolite (Neg) U Marijuana (THC) Screen (Neg) Ethyl Alcohol mg/dL (<10.0) mg/dl SARS-CoV-2, RNA, NAAT (NEGATIVE) Current Inpatient Medications Current Inpatient Medications: Current Inpatient Medications Acetaminophen (Acetaminophen 325 Mg Tab) 650 mg PO Q4H PRN PRN Reason: Headache or Minor Fever Stop: 10/17/21 12:30 Al Hydrox/Mg Hydrox/Simethicone (Aluminum/Magnesium Susp 30 Ml Udc) 30 ml PO Q4H PRN PRN Reason: GI Upset Stop: 10/17/21 12:30 Bismuth Subsalicylate (Bismuth Subsalicylate Liqd 236 Ml) 15 ml PO PRN PRN PRN Reason: Loose Stool Stop: 10/17/21 12:30 Hydroxyzine HCl (Hydroxyzine Hcl 25 Mg Tab) 50 mg PO HSZ PRN PRN Reason: Insomnia Stop: 10/17/21 12:30 Hydroxyzine HCl (Hydroxyzine Hcl 25 Mg Tab) 25 mg PO Q4H PRN PRN Reason: Anxiety Stop: 10/17/21 12:30 Lorazepam (Lorazepam 1 Mg Tab) 1 - 3 mg PO UD PRN; Protocol PRN Reason: EtoH Withdrawal AWSS 6-10+ Stop: 10/17/21 12:30 Magnesium Hydroxide (Magnesium Hydroxide Susp 30 Ml Udc) 30 ml PO DAILY PRN PRN Reason: Constipation Stop: 10/17/21 12:30 Sodium Chloride (Sodium Chloride 0.65% Na Soln 45 Ml (Mccone)) 1 - 2 sprays NA PRN PRN PRN Reason: Nasal Dryness/Congestion Stop: 10/17/21 12:30
[2021-09-17] MEDS: hydrOXYzine HCl 25 MG TAB PO PRN (23:04)
--- NOTE | 2021-09-18 10:20 | Psychiatric Progress Note ---
Date of Service September 18, 2021 Impression / Recommendations Impression Danielle is a 51-year-old female with hopelessness, decline in coping, self- medication with Etoh related to family stressors who was transferred from the medical floor s/p intention metoprolol OD. 09/18/21: remains resistant to treatment, focussed on family stress as unchangeable. (1) Major depression: (2) Alcohol use disorder: 09/18/21: FMLA paperwork received. Encourage family session. Continue Prozac. 09/17/21: The patient was admitted to the [facility] ([facility] unit) on q15 min checks (behavioral with suicide precautions) for safety. The patient will participate in group, recreational, and milieu therapies and will be offered additional individual and family sessions as clinically appropriate. Brief intervention around substance abuse when able. Risks/benefits/alternatives reviewed re: Prozac given that 80 mg is max dose. She specifically denied OCD. She has been on Prozac for years and doesn't view "my problems as a med issue" and declines to discuss augmentation. The patient's pattern of drinking suggests problematic drinking. Brief intervention was offered and accepted. Intervention was greater than 5 min in length and included assessing readiness to quit, how to reduce or abstain from alcohol, and to set a specific goal for this hospitalization. forestry worker will also assist in anticipating barriers to sobriety and in problem-solving for solutions to those problems while arranging for referral to appropriate treatment. The patient is in precontemplation stage with regards to transtheoretical model of change. The patient is advised to decrease alcohol consumption due to depressant effects tendency to disrupt sleep. 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 Needs: therapist, family session Risk Factors Assessment : Yes Do You Have Access To A Gun?: No Health Problems: No Mental Health Diagnoses: Yes Substance Use Disorders: Yes Previous Attempt: No Previous Psychiatric Hospitalization: No Protective Factors Assessment Anabaptism Beliefs: No : No Responsible for Young Children: Yes Employed: Yes Stable Relationships: No Interval History Identifying Information DANIELLE MALDONADO is a 51-year-old F who currently lives in [place], has no prior psych history, and was admitted on 09/17/21 12:33 on a 201 voluntary commitment on transfer from the medical floor following an overdose of metoprolol. Chief Complaint "I don't know what I'll do when I leave here" Review of Systems Sleep Information Total Hours of Sleep: 6.5 Sleep Comments: pt given vistaril per rn. pt on q-15 minute checks Meal Information Percent Meal Consumed - Breakfast: 0 Percent Meal Consumed - Dinner: 100 Nutrition Comment: Pt slept through breakfast and her meal was saved Subjective Subjective Patient was seen & assessed and interval progress reviewed with treatment team. Tends to sleep alot on unit, did attend select groups. Continues to maintain that she does not want aftercare. No evidence of Etoh withdrawal. States that she wants to live but is overwhelmed with care for mother, can't imagine moving out/limiting contact when mom is 79. has been communicating with her daughter. Physical Exam Psychiatric Orientation: alert and oriented x 3 Apperance: appropriately dressed and appropriately groomed Eye Contact: good eye contact Motor Behavior: no abnormal motor movements Speech: normal rate/rhythm/volume of speech Affect: + depressed affect Mood: + depressed mood Thought Process: goal directed thought process Thought Content: reality based without delusions Suicidal Thoughts: denies suicidal thoughts and denies suicidal plan Homicidal Thoughts: denies homicidal thoughts Hallucinations: no auditory hallucinations and no visual hallucinations Cognition: attention grossly intact and language grossly intact Estimated Intelligence: consistent with education level Insight: + limited insight Judgement: + limited judgement Vital Signs (Past 24 Hours) Last Vital Signs Temp 36.9 C 09/18/21 06:54 Pulse 77 09/18/21 06:55 Resp 16 09/18/21 06:54 BP 130/82 09/18/21 06:55 Results & Data ([facility]) Current Inpatient Medications Current Inpatient Medications: Current Inpatient Medications Acetaminophen (Acetaminophen 325 Mg Tab) 650 mg PO Q4H PRN PRN Reason: Headache or Minor Fever Stop: 10/17/21 12:30 Last Admin: 09/17/21 17:13 Dose: 650 mg Documented by: Al Hydrox/Mg Hydrox/Simethicone (Aluminum/Magnesium Susp 30 Ml Udc) 30 ml PO Q4H PRN PRN Reason: GI Upset Stop: 10/17/21 12:30 Bismuth Subsalicylate (Bismuth Subsalicylate Liqd 236 Ml) 15 ml PO PRN PRN PRN Reason: Loose Stool Stop: 10/17/21 12:30 Hydroxyzine HCl (Hydroxyzine Hcl 25 Mg Tab) 50 mg PO HSZ PRN PRN Reason: Insomnia Stop: 10/17/21 12:30 Last Admin: 09/17/21 23:04 Dose: 50 mg Documented by: Hydroxyzine HCl (Hydroxyzine Hcl 25 Mg Tab) 25 mg PO Q4H PRN PRN Reason: Anxiety Stop: 10/17/21 12:30 Lorazepam (Lorazepam 1 Mg Tab) 1 - 3 mg PO UD PRN; Protocol PRN Reason: EtoH Withdrawal AWSS 6-10+ Stop: 10/17/21 12:30 Magnesium Hydroxide (Magnesium Hydroxide Susp 30 Ml Udc) 30 ml PO DAILY PRN PRN Reason: Constipation Stop: 10/17/21 12:30 Sodium Chloride (Sodium Chloride 0.65% Na Soln 45 Ml (Wilcox)) 1 - 2 sprays NA PRN PRN PRN Reason: Nasal Dryness/Congestion Stop: 10/17/21 12:30 Post Discharge Appointments Primary Care Physician Name Of Family Doctor: Dr. Bush
[2021-09-18] MEDS: NICOTINE 21 MG/24 HR TDSY TD SCH (13:33)
[2021-09-18] MEDS: ASCORBIC ACID 500 MG TAB PO SCH (13:34)
[2021-09-18] MEDS: CHOLECALCIFEROL 1,000 UNITS 25 MCG TAB PO SCH (13:34)
[2021-09-18] MEDS: ASPIRIN 81 MG ECTAB PO SCH (13:34)
[2021-09-18] MEDS: IBUPROFEN 800 MG TAB PO SCH (13:35)
[2021-09-18] MEDS: ATORVASTATIN 40 MG TAB PO SCH (13:35)
[2021-09-18] MEDS: FLUoxetine HCL 20 MG CAP PO SCH (13:35)
[2021-09-18] MEDS: METOPROLOL SUCC 50MG EXT REL TAB PO SCH (13:35)
[2021-09-18] MEDS: THIAMINE HCL 100 MG TAB PO SCH (13:35)
[2021-09-18] MEDS: FOLIC ACID 1 MG TAB PO SCH (13:35)
[2021-09-18] MEDS: PANTOprazole 40 MG TAB PO SCH (13:35)
[2021-09-18] MEDS ORDERED: NICOTINE POLACRILEX 2 MG GUM MT PRN (18:46)
[2021-09-18] MEDS: hydrOXYzine HCl 25 MG TAB PO PRN (23:40)
[2021-09-19] MEDS: NICOTINE 21 MG/24 HR TDSY TD SCH (10:18)
[2021-09-19] MEDS: ATORVASTATIN 40 MG TAB PO SCH (10:19)
[2021-09-19] MEDS: ASCORBIC ACID 500 MG TAB PO SCH (10:19)
[2021-09-19] MEDS: ASPIRIN 81 MG ECTAB PO SCH (10:19)
[2021-09-19] MEDS: CYANOCOBALAMIN (B-12) 500 MCG TABLET PO SCH (10:20)
[2021-09-19] MEDS: FOLIC ACID 1 MG TAB PO SCH (10:20)
[2021-09-19] MEDS: CHOLECALCIFEROL 1,000 UNITS 25 MCG TAB PO SCH (10:20)
[2021-09-19] MEDS: FLUoxetine HCL 20 MG CAP PO SCH (10:20)
[2021-09-19] MEDS: IBUPROFEN 800 MG TAB PO SCH (10:21)
[2021-09-19] MEDS: METOPROLOL SUCC 50MG EXT REL TAB PO SCH (10:21)
[2021-09-19] MEDS: PANTOprazole 40 MG TAB PO SCH (10:21)
[2021-09-19] MEDS: THIAMINE HCL 100 MG TAB PO SCH (10:21)
[2021-09-19] MEDS: LOSARTAN POTASSIUM 50 MG TAB PO SCH (10:21)
--- NOTE | 2021-09-19 12:20 | Psychiatric Progress Note ---
Date of Service September 19, 2021 Impression / Recommendations Carmel Santos is a 51-year-old female with hopelessness, decline in coping, self- medication with Etoh related to family stressors who was transferred from the medical floor s/p intention metoprolol OD. 09/19/21: ambivalent re: living situation, safety plan, and return to work (1) Major depression: (2) Alcohol use disorder: 09/19/21: Continued inpatient hospitalization is medically necessary for ongoing monitoring and safety. 09/18/21: [place] paperwork received. Encourage family session. Continue Prozac. 09/17/21: The patient was admitted to the [facility] ([facility]) on q15 min checks (behavioral with suicide precautions) for safety. The patient will participate in group, recreational, and milieu therapies and will be offered additional individual and family sessions as clinically appropriate. Brief intervention around substance abuse when able. Risks/benefits/alternatives reviewed re: Prozac given that 80 mg is max dose. She specifically denied OCD. She has been on Prozac for years and doesn't view "my problems as a med issue" and declines to discuss augmentation. The patient's pattern of drinking suggests problematic drinking. Brief in tervention was offered and accepted. Intervention was greater than 5 min in length and included assessing readiness to quit, how to reduce or abstain from alcohol, and to set a specific goal for this hospitalization. lineworker will also assist in anticipating barriers to sobriety and in problem-solving for solutions to those problems while arranging for referral to appropriate treatment. The patient is in precontemplation stage with regards to transtheoretical model of change. The patient is advised to decrease alcohol consumption due to depressant effects tendency to disrupt sleep. 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 Needs: therapist, family session Risk Factors Assessment : Yes Do You Have Access To A Gun?: No Health Problems: No Mental Health Diagnoses: Yes Substance Use Disorders: Yes Previous Attempt: No Previous Psychiatric Hospitalization: No Protective Factors Assessment Jain Beliefs: No : No Responsible for Young Children: Yes Employed: Yes Stable Relationships: No Interval History Identifying Information MATTI MALDONADO is a 51-year-old F who currently lives in [place], has no prior psych history, and was admitted on 09/17/21 12:33 on a 201 voluntary commitment on transfer from the medical floor following an overdose of metoprolol. Chief Complaint "I just can't imagine being back home". Review of Systems Sleep Information Total Hours of Sleep: 5.5 Sleep Comments: pt given vistaril per rn. pt on q-15 minute checks Meal Information Percent Meal Consumed - Breakfast: 0 Percent Meal Consumed - Lunch: 0 Percent Meal Consumed - Dinner: 100 Nutrition Comment: pt. requested to sleep; meal held for later/refrigerated Subjective Subjective Patient was seen & assessed and interval progress reviewed with nursing and social work. Is more pleasant and attending more groups, tends to sleep in am but does work nights. has meeting with daughter this pm. She is unsure she can "handle my mom again" and therefore cannot contract for safety outside of the hospital. Physical Exam Psychiatric Orientation: alert and oriented x 3 Apperance: appropriately dressed and appropriately groomed Eye Contact: good eye contact Motor Behavior: no abnormal motor movements Speech: normal rate/rhythm/volume of speech Affect: + depressed affect Mood: + depressed mood Thought Process: goal directed thought process Thought Content: reality based without delusions Suicidal Thoughts: denies suicidal thoughts and denies suicidal plan Homicidal Thoughts: denies homicidal thoughts Hallucinations: no auditory hallucinations and no visual hallucinations Cognition: attention grossly intact and language grossly intact Estimated Intelligence: consistent with education level Insight: + limited insight Judgement: + limited judgement Vital Signs (Past 24 Hours) Last Vital Signs Temp 36.8 C 09/19/21 06:40 Pulse 74 09/19/21 06:44 Resp 18 09/19/21 06:40 BP 126/89 09/19/21 06:44 Results & Data ([facility]) Current Inpatient Medications Current Inpatient Medications: Current Inpatient Medications Acetaminophen (Acetaminophen 325 Mg Tab) 650 mg PO Q4H PRN PRN Reason: Headache or Minor Fever Stop: 10/17/21 12:30 Last Admin: 09/17/21 17:13 Dose: 650 mg Documented by: Al Hydrox/Mg Hydrox/Simethicone (Aluminum/Magnesium Susp 30 Ml Udc) 30 ml PO Q4H PRN PRN Reason: GI Upset Stop: 10/17/21 12:30 Ascorbic Acid (Ascorbic Acid 500 Mg Tab) 2,000 mg PO DAILY [facility] Stop: 10/18/21 11:59 Last Admin: 09/19/21 10:19 Dose: 2,000 mg Documented by: Aspirin (Aspirin 81 Mg Ectab) 81 mg PO [facility] Stop: 10/18/21 11:59 Last Admin: 09/19/21 10:19 Dose: 81 mg Documented by: Atorvastatin Calcium (Atorvastatin 40 Mg Tab) 80 mg PO [facility] Stop: 10/18/21 11:59 Last Admin: 09/19/21 10:19 Dose: 80 mg Documented by: Bismuth Subsalicylate (Bismuth Subsalicylate Liqd 236 Ml) 15 ml PO PRN PRN PRN Reason: Loose Stool Stop: 10/17/21 12:30 Cyanocobalamin (Cyanocobalamin (B-12) 500 Mcg Tablet) 1,000 mcg PO [facility] Stop: 10/19/21 08:59 Last Admin: 09/19/21 10:20 Dose: 1,000 mcg Documented by: Fluoxetine HCl (Fluoxetine Hcl 20 Mg Cap) 80 mg PO [facility] Stop: 10/18/21 11:59 Last Admin: 09/19/21 10:20 Dose: 80 mg Documented by: Folic Acid (Folic Acid 1 Mg Tab) 1 mg PO [facility] Stop: 10/18/21 11:59 Last Admin: 09/19/21 10:20 Dose: 1 mg Documented by: Hydroxyzine HCl (Hydroxyzine Hcl 25 Mg Tab) 50 mg PO HSZ PRN PRN Reason: Insomnia Stop: 10/17/21 12:30 Last Admin: 09/18/21 23:40 Dose: 50 mg Documented by: Hydroxyzine HCl (Hydroxyzine Hcl 25 Mg Tab) 25 mg PO Q4H PRN PRN Reason: Anxiety Stop: 10/17/21 12:30 Ibuprofen (Ibuprofen 800 Mg Tab) 800 mg PO [facility] Stop: 10/18/21 11:59 Last Admin: 09/19/21 10:21 Dose: 800 mg Documented by: Losartan Potassium (Losartan Potassium 50 Mg Tab) 100 mg PO [facility] Stop: 10/19/21 08:59 Last Admin: 09/19/21 10:21 Dose: 100 mg Documented by: Magnesium Hydroxide (Magnesium Hydroxide Susp 30 Ml Udc) 30 ml PO DAILY PRN PRN Reason: Constipation Stop: 10/17/21 12:30 Metoprolol Succinate (Metoprolol Succ 50mg Ext Rel Tab) 50 mg PO [facility] Stop: 10/18/21 11:59 Last Admin: 09/19/21 10:21 Dose: 50 mg Documented by: Miscellaneous (Remove Nicoderm Patch) 1 ea N/A DAILY@0859 [facility] Stop: 10/19/21 08:58 Last Admin: 09/19/21 10:22 Dose: Not Given Documented by: Nicotine (Nicotine 21 Mg/24 Hr Tdsy) 21 mg TD [facility] Stop: 10/18/21 11:14 Last Admin: 09/19/21 10:18 Dose: 21 mg Documented by: Nicotine Polacrilex (Nicotine Polacrilex 2 Mg Gum) 1 piece MT PRN PRN PRN Reason: smoking cessation Stop: 10/18/21 18:45 Last Admin: 09/18/21 19:16 Dose: 1 piece Documented by: Pantoprazole Sodium (Pantoprazole 40 Mg Tab) [facility] Stop: 10/18/21 11:59 Last Admin: 09/19/21 10:21 Dose: 40 mg Documented by: Sodium Chloride (Sodium Chloride 0.65% Na Soln 45 Ml ([place])) 1 - 2 sprays NA PRN PRN PRN Reason: Nasal Dryness/Congestion Stop: 10/17/21 12:30 Thiamine HCl (Thiamine Hcl 100 Mg Tab) 100 mg PO [facility] Stop: 10/18/21 11:59 Last Admin: 09/19/21 10:21 Dose: 100 mg Documented by: Vitamin D (Cholecalciferol 1,000 Units 25 Mcg Tab) 1,000 units [facility] Stop: 10/18/21 11:59 Last Admin: 09/19/21 10:20 Dose: 1,000 units Documented by: Post Discharge Appointments Primary Care Physician Name Of Family Doctor: Mary Bush [facility] Date of Appointment with PCP: 10/01/21 Time of Appointment with PCP: Arrive 10:45 AM Provider Appointment Comment: Alin Hernandez [id number] Contact Information Discharge Discharge [address]: [address] [place] [id number]
[2021-09-19] MEDS: hydrOXYzine HCl 25 MG TAB PO PRN (23:28)
[2021-09-20] MEDS: hydrOXYzine HCl 25 MG TAB PO PRN (01:08)
[2021-09-20] MEDS: ATORVASTATIN 40 MG TAB PO SCH (10:30)
[2021-09-20] MEDS: FOLIC ACID 1 MG TAB PO SCH (10:30)
[2021-09-20] MEDS: METOPROLOL SUCC 50MG EXT REL TAB PO SCH (10:30)
[2021-09-20] MEDS: ASPIRIN 81 MG ECTAB PO SCH (10:31)
[2021-09-20] MEDS: ASCORBIC ACID 500 MG TAB PO SCH (10:31)
[2021-09-20] MEDS: CHOLECALCIFEROL 1,000 UNITS 25 MCG TAB PO SCH (10:31)
[2021-09-20] MEDS: THIAMINE HCL 100 MG TAB PO SCH (10:32)
[2021-09-20] MEDS: IBUPROFEN 800 MG TAB PO SCH (10:32)
[2021-09-20] MEDS: PANTOprazole 40 MG TAB PO SCH (10:32)
[2021-09-20] MEDS: FLUoxetine HCL 20 MG CAP PO SCH (10:32)
[2021-09-20] MEDS: CYANOCOBALAMIN (B-12) 500 MCG TABLET PO SCH (10:32)
[2021-09-20] MEDS: LOSARTAN POTASSIUM 50 MG TAB PO SCH (10:32)
[2021-09-20] MEDS: NICOTINE 21 MG/24 HR TDSY TD SCH (10:41)
--- NOTE | 2021-09-20 12:11 | Discharge Summary ---
Date of Service September 20, 2021 History of Present Illness On the pm of 09/13/21 the patient admitted to taking anywhere from 50-90 pills of 50 mg metoprolol following an argument with her mother. 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 Mother has lung CA and seems increasingly irritable, particularly toward the patient's 4 yo great grandchild. The patient's mother doesn't recognize her as her grandson's child and treats her differently from the other children. 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 Other stressors/family conflict is the fact her her son lives in her home with his girlfriend and 3 children. He is reportedly bipolar and has issues with drug use and took $900 from her back account while the patient was in the hospital. The patient admitted to drinking 1/5 of vodka daily for the past month and referred to herself as an "alcoholic". She has no history of rehab and now kirit es seizure or having a 1/5th of vodka daily. She was loaded with Neurontin on the medical floor and received prn Ativan regularly on the medical floor while on AWSS protocol. 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 She drinks primarily coffee liquor as she likes the taste and views it as low alcohol content in her mudslide. She doesn't feel she has time for therapy and states that she hasn't sought psych care before as went to see someone about ADHD when she was in school and was treated disrespectfully. Physical Exam Psychiatric See admission H&P and DOD assessment. Vital Signs (Past 24 Hours) Last Vital Signs Temp 36.9 C 09/20/21 11:49 Pulse 83 09/20/21 11:49 Resp 16 09/20/21 11:49 BP 126/89 09/20/21 11:49 Principal Diagnosis major depressive disorder Psychiatric Data See daily stay summary. In short, safety was maintained and the patient was initially resistant to care but ultimately out of room more and attending groups. She declined medication changes. A family session was held with her daughter and safety plan was completed prior to discharge. The patient was encouraged to speak with her mother prior to discharge to anticipate stressors in living environment but she preferred to do this in person and daughter also agreed most appropriate. She repeatedly declined therapy and psychiatric referrals. Evidence suggests she exhausted most of her recent supply of 90 days of Toprol XL and although she states she would not repeat an OD, only short supply was given so she can review with her prescriber, plus will likely have to pay out of pocket. At discharge she did request prn Vistaril for sleep should she have issues at home. Again, a very short supply of medication was given given recent OD. She is aware not to combine with Etoh and does state that she plans to continue to drink ETOH as she pleases as "I can't have a problem as I didn't have major withdrawal" and reviewed that she was in hospital loaded with Neurontin and being closely monitored. Day of Discharge Assessment Today the patient voices readiness for discharge. They note improvement in mood and deny thoughts to harm self or others. Thoughts remain organized and they are improved from admission. There is no evidence of psychosis. They agree to take mediations as prescribed and keep follow-up appointment with their PCP. They are stable for discharge to outpatient level of care. Transition of Care Transition Of Care Record: was reviewed with the patient Advance Directives Advance Directives Information Provided: Yes Advance Directives: No Mental Health Advance Directive: No Advance Directives on File: No Living Will: No Power of Log Carrier Operator: No Advance Directives Reason:: Declines as Mental Health Visit. Risk Factors Assessment : Yes Do You Have Access To A Gun?: No Health Problems: No Mental Health Diagnoses: Yes Substance Use Disorders: Yes Previous Attempt: No Previous Psychiatric Hospitalization: No Protective Factors Assessment Tenriism Beliefs: No : No Responsible for Young Children: Yes Employed: Yes Stable Relationships: No Tobacco Cessation at Discharge Tobacco Cessation Medication Prescribed at Discharge: Offered & Prescribed Practical counseling provided including: providing basic information about quitting Tobacco Cessation Outpatient Followup: Outpatient referral made to (Quitline and has PCP f/u) Total Time Total Time Spent: Greater Than 30 Minutes Total Time Includes: Examination of the patient, Discharge Planning and Medication Reconciliation Hospital Course (1) Major depression: (2) Alcohol use disorder: 09/19/21: Continued inpatient hospitalization is medically necessary for ongoing monitoring and safety. 09/18/21: FMLA paperwork received. Encourage family session. Continue Prozac. 09/17/21: The patient was admitted to the [facility]) on q15 min checks (behavioral with suicide precautions) for safety. The patient will participate in group, recreational, and milieu therapies and will be offered additional individual and family sessions as clinically appropriate. Brief intervention around substance abuse when able. Risks/benefits/alternatives reviewed re: Prozac given that 80 mg is max dose. She specifically denied OCD. She has been on Prozac for years and doesn't view "my problems as a med issue" and declines to discuss augmentation. The patient's pattern of drinking suggests problematic drinking. Brief intervention was offered and accepted. Intervention was greater than 5 min in length and included assessing readiness to quit, how to reduce or abstain from alcohol, and to set a specific goal for this hospitalization. fellmongery worker will also assist in anticipating barriers to sobriety and in problem-solving for solutions to those problems while arranging for referral to appropriate treatment. The patient is in precontemplation stage with regards to transtheoretical model of change. The patient is advised to decrease alcohol consumption due to depressant effects tendency to disrupt sleep. Post Discharge Appointments Primary Care Physician Name Of Family Doctor: Mary [place] - Dr. Bush Primary [facility] Date of Appointment with PCP: 10/01/21 Time of Appointment with PCP: Arrive 10:45 AM Provider Appointment Comment: [address] [place] [address] Smoking Cessation Counseling Tobacco Cessation Medication Prescribed at Discharge: Offered & Prescribed Other #1: Name of Aftercare Appointment: Potential Therapy Option: [facility] Phone Number of Aftercare Appointment: [phone] Aftercare Appointment Comment: [address] [facility], [address], [place] #2: Name of Aftercare Appointment: Potential Therapy Option: [facility] Phone Number of Aftercare Appointment: Aftercare Appointment Comment: [phone] [facility] [address], [place] [address] #3: Name of Aftercare Appointment: Potential Therapy Option: [facility] Phone Number of Aftercare Appointment: [phone] Aftercare Appointment Comment: [address] [facility] [address], [place] [address] Contact Information Discharge Discharge [address]: [address] [place] [address], [facility] [place] [address] Discharge Plan Discharge Items Patient Disposition: Home - Self-Care Reason For Visit: MDD Discharge Diagnosis: major depressive disorder Activity: Resume your previous activity Non-emergency contact: Primary Care Provider Call non-emergency contact if: you have any medication questions and your sympto ms worsen Follow-up/Referrals: Orlando Bush MD [Primary Care Provider] - Diet: Regular Addtl Attending Provider Instructions: SPECIAL CARE INSTRUCTIONS: 1. Follow through with your scheduled aftercare appointments. If unable to keep an appointment, please call to reschedule. 2. Take your medication only as prescribed. Medication should not be changed or stopped without the approval of your doctor. In the event of worsening symptoms or concerns about side effects, contact your doctor immediately. 3. Utilize new healthy coping skills, anger management skills, and stress management skills learned during your hospitalization. Journal feelings and process them with a support person. Identify stressors or situations that may result in relapse, deterioration or inappropriate behaviors and develop a plan to deal with those issues. 4. If your coping skills are ineffective and you are in crisis, contact your outpatient providers for direction. If unable to reach your providers, please call the [facility] CRISIS LINE AT , go to the [facility] walk-in center at [address] [place] [address] [facility], or go to the closest Emergency Room. 5. Avoid alcohol and un-prescribed drugs. 6. You have been provided with the Mental Health Advance Directives Pamphlet for your review. 7. Your condition is stable for discharge to outpatient level of care, but recovery is an ongoing process. Ifthoughts to harm yourself or others return, follow the safety plan developed during your stay. Planning for a safe return home includes securing weapons. Our treatment team recommends weaponsbe removed from the home until your outpatient provider reassesses your progress. In rare cases where the items themselvescannot be removed, guns and ammunitionshould be secured separatelyand keys stored by a reliable personoutside of the home. If you were admitted on an involuntary commitment, the police or other legal authorities may be involved in this process. AFTERCARE APPOINTMENTS: * Please call your insurance company prior to your scheduled appointment to confirm your aftercare providers are covered. Take your insurance information to your appointments. WHO TO CALL AND WHEN: Medical Emergencies: For questions or emergencies related to your hospital stay, please contact the Inpatient Behavioral Health Unit at [phone]. A mechanical adjuster is on-call 09/02 for the Behavioral Health Unit for emergencies At any time you feel your situation is an emergency, you may also call 911 immediately. Pending Studies at Discharge: No Stand-Alone Forms: My [facility], Smoking Cessation Medications and DC Order Prescriptions: New nicotine [Nicoderm CQ] 21 mg/24 hr Patch 24 Hour 21 mg transdermal QAM Qty: 14 RF: 0 hydroxyzine HCl 25 mg Tablet 50 mg PO HSZ PRN (Reason: insomnia) Qty: 10 RF: 2 Continued metoprolol succinate 50 mg Tablet Extended Release 24 Hr 50 mg PO QAM Qty: 7 RF: 0 fluoxetine 40 mg Capsule 80 mg PO QAM RF: 0 atorvastatin 80 mg Tablet 80 mg PO QAM RF: 0 ibuprofen 800 mg Tablet 800 mg PO QAM RF: 0 cyanocobalamin (vitamin B-12) [Vitamin B-12] 1,000 mcg Tablet 1,000 mcg PO QAM RF: 0 pantoprazole 40 mg Tablet,Delayed Release (Dr/Ec) 40 mg PO QAM RF: 0 albuterol sulfate 90 mcg/actuation Hfa Aerosol Inhaler 2 puff INHALATION QID PRN (Reason: Shortness Of Breath) RF: 0 losartan 100 mg Tablet 100 mg PO QAM RF: 0 cholecalciferol (vitamin D3) [Vitamin D3] 25 mcg (1,000 unit) Tablet 25 mcg PO QAM RF: 0 aspirin 81 mg Capsule 81 mg PO QAM RF: 0 ascorbic acid (vitamin C) 2,000 mg Tablet Extended Release 2,000 mg PO DAILY RF: 0 Discontinued metoprolol succinate 50 mg Tablet Extended Release 24 Hr 50 mg PO QAM RF: 0 folic acid 1 mg Tablet 1 mg PO QAM Qty: 30 RF: 0 thiamine HCl (vitamin B1) 100 mg Tablet 100 mg PO QAM Qty: 30 RF: 0 Discharge Orders: Discharge Order (Routine); Ordered 09/20/21 Ordered By: Jordana Ross Admission Data Admit Date/Time: 09/17/21 12:33 Attending Provider: Jordana Ross Admit Provider: Jordana Ross Primary Care Provider: Orlando Bush Other Interventions: Discharge Summary Assessment (RN) Last Done: 09/20/21 11:49 PSY Interdisciplinary Discharge Planning Last Done: 09/20/21 12:31 Coding Level of Care Code 68897 D/C day mgmt > 30 min Diagnoses Major depression F32.9 Alcohol use disorder
== END 2021-09-20 13:10 | disposition home or self-care (01) | DRG 881 ==
LOC: 3S 12:33